=== PATIENT | male | born 1940 | race Caucasian/White ===

== ENCOUNTER 2022-03-31 19:06 | Outpatient (CLI) | payer MEDICARE, BC, SELFPAY | END 2022-03-31 19:07 | disposition home or self-care (01) | LOC: AMB 04-08 12:35 | PROVIDERS: PCP Family Medicine; Visit Provider Family Medicine | DX: R42 Dizziness and giddiness (principal); R11.2 Nausea with vomiting, unspecified | CPT/HCPCS: A0425; A0427 ==

== ENCOUNTER 2022-03-31 19:39 | Emergency (ER) | payer MEDICARE, BC, SELFPAY ==
[2022-03-31 19:43] VITALS: BP 162/88; PULSE 58; RESP 20; TEMP 36.8; O2SAT 98
--- NOTE | 2022-03-31 19:55 | CRLHL7_ITS ---
For Patients: As a result of the Century Cures Act, medical imaging exams and procedure reports are released immediately into your electronic medical record. You may view this report before your referring provider. If you have questions, please contact your health care provider. INDICATION: Nausea and vomiting. COMPARISON: CT dated March 05, 2019, cooker chip radiograph. TECHNIQUE: Two views, upright and supine of the abdomen. FINDINGS: No evidence of free air on the upright film. Several loops of gas-filled, mildly dilated bowel, with similar constellation when compared to prior cooker chip radiograph. No evidence of obstruction. Similar appearance of spinal and left femur hardware. Osteopenia. Degenerative changes of the spine. Elevation of the right hemidiaphragm. IMPRESSION: Nonobstructive bowel gas pattern. No evidence of free air. Dictated by Thomas Garcia MD @ 03/31/2022 8:52:56 PM (Electronically Signed)
[2022-03-31 20:24] LABS: Basophils Absolute Auto 0.09 K/uL (0.00-0.30); Basophils Percent Auto 1.3 % (0.0-3.0); Eosinophils Absolute Auto 0.27 K/uL (0.00-0.50); Eosinophils Percent Auto 3.8 % (0.0-7.0); Hematocrit 37.8 % (37.0-53.0); Hemoglobin* 12.3 gm/dL (13.5-17.5); Immature Granulocytes Abs Auto 0.01 K/uL (0.00-0.30); Lymphocytes Percent Auto 19.4 % (20-44); Mean Corpuscular HGB Conc 33 gm/dL (32-36); Mean Corpuscular Hemoglobin 31 pg (26-34); Mean Corpuscular Volume 96 fL (80-100); Monocytes Percent Auto 6.1 % (0.0-11.0); Neutrophils Absolute Auto 4.91 K/uL (1.7-7.0); Neutrophils Percent Auto 69.3 % (42.0-72.0); Platelet Count* 211 K/uL (140-440); RDW Coefficient of Variation % 13.7 % (11.5-15.5); Red Blood Count 3.95 m/uL (4.30-5.90); White Blood Count* 7.08 K/uL (4.50-11.00)
[2022-03-31 20:30] LABS: Lactate* 1.3 mmol/L (0.5-1.9)
[2022-03-31 20:42] LABS: SARS Antigen* negative (Negative)
[2022-03-31 20:46] LABS: Slide Review Reflex No
[2022-03-31 20:52] LABS: Albumin* 3.9 g/dL (3.3-5.0); Chloride* 108 mmol/L (96-114); Sodium* 139 mmol/L (135-149)
[2022-03-31 20:53] LABS: Potassium* 3.7 mmol/L (3.6-5.1)
[2022-03-31 20:55] LABS: Alanine Aminotransferase* 15 U/L (4-50); Alkaline Phosphatase* 52 U/L (40-150); Aspartate Amino Transferase* 26 U/L (12-35); Bilirubin Total* 0.4 mg/dL (0.1-1.5); Blood Urea Nitrogen* 18 mg/dL (7-30); Calcium* 9.6 mg/dL (8.4-10.6); Carbon Dioxide* 28 mmol/L (20-32); Creatinine* 0.9 mg/dL (0.5-1.5); Estimated Glomerular Filt Rate 87 ml/min; Glucose* 160 mg/dL (60-115); Lipase* 60 U/L (23-300); Total Protein* 6.7 g/dL (6.0-8.3)
[2022-03-31] MEDS: METOCLOPRAMIDE HCL 5 MG/ML INJ 10 MG IVP (20:58)
[2022-03-31 21:08] LABS: Troponin I* < 0.01 ng/mL (0.01-0.04)
[2022-03-31 21:34] LABS: Appearance Urine Clear (Clear); Bilirubin Urine Negative (Negative); Blood Urine 2+ (Negative); Color Urine Yellow (Yellow); Glucose Urine Negative (Negative); Ketones Urine 1+ (Negative); Leukocyte Esterase Urine Trace (Negative); Nitrite Urine Negative (Negative); Protein Urine 2+ (Negative); Specific Gravity Urine 1.025 (1.000-1.030)
[2022-03-31 21:55] LABS: Calcium Oxalate Crystals Urine Few
--- NOTE | 2022-03-31 22:17 | CRLHL7_ITS ---
For Patients: As a result of the Century Cures Act, medical imaging exams and procedure reports are released immediately into your electronic medical record. You may view this report before your referring provider. If you have questions, please contact your health care provider. INDICATION: Hematuria. TECHNIQUE: CT abdomen and pelvis without contrast. COMPARISON: February 03, 2019. FINDINGS: Lower chest: Mild right basilar atelectasis. Elevation of the right hemidiaphragm. Liver: Normal in size and attenuation. No suspicious masses. Gallbladder and bile ducts: Post cholecystectomy. Mild intra and extrahepatic biliary ductal dilatation likely reservoir effect. Pancreas: Mild diffuse pancreatic atrophy. Spleen: Numerous splenic calcified granulomas. Adrenal glands: Normal in size. No nodules. Kidneys: Right-sided hydronephrosis. Nonobstructing stones identified in the collecting system and in the right renal pelvis measuring up to 8 millimeters in diameter. In addition, there is mild hydro ureter on the right with a 4 millimeter stone identified at the right UVJ, probably in the bladder. Bilateral renal cysts are identified, similar to prior exam from 2019. GI tract: Unremarkable. Normal in caliber. No sign of mass or inflammation. Normal appendix. Vasculature: Abdominal aorta is normal in caliber. Lymph nodes: No lymphadenopathy. Peritoneum/Abdominal Wall: Unremarkable. No sign of mass or infiltration. No free air or significant free fluid. Pelvis: Unremarkable. No pelvic masses. Bones: Multilevel degenerative changes in the spine with multilevel fusion. Orthopedic hardware in the lower lumbar spine. Scoliosis. Intramedullary nusrat and fixation screws in the left proximal femur. IMPRESSION: 4 millimeter stone identified near the right UVJ likely just passed into the bladder. Mild right hydroureteronephrosis. Additional nonobstructing stones identified in the right renal pelvis and right renal collecting system measuring up to 8 millimeters. Please note that all CT scans at this facility use dose modulation, iterative reconstruction, and/or weight-based dosing when appropriate to reduce radiation dose to as low as reasonably achievable. Dictated by Bridger García MD @ 03/31/2022 11:13:00 PM (Electronically Signed)
--- NOTE | 2022-03-31 23:41 | ED.GENADULT ---
HPI - General Adult General Chief complaint: Nausea/Vomiting Stated complaint: Weakness Time Seen by Provider: 03/31/22 19:53 History of Present Illness HPI narrative: 81yo male with h/o diabetes, urinary frequency, gout, and nephrolithiasis that presents with vomiting x2 days. The patient denies abdominal pain. The patient reports for the day prior to presentation he had normal daytime activities without symptoms noted; then at dinner, he is able to eat some of his dinner prior to becoming weak and diaphoretic, after which he promptly vomits and has brief improvement of symptoms. The patient reports the symptoms recurred today, prior to presentation. The patient denies history of bloating and gas, constipation, or dysuria. The patient has remote h/o COVID. The patient reports taking medication for chronic conditions, as noted. The patient is able to tolerate PO intake. The patient reports eating has no affect on symptoms. The patient states that he has had no known sick contacts, no recent changes in diet, no travel. The patient denies fever, chills, or sweats. See nursing notes for details. Related Data Home Medications Medication Instructions Recorded Confirmed allopurinol 100 mg tablet mg 03/31/22 finasteride 5 mg tablet mg 03/31/22 furosemide 20 mg tablet mg 03/31/22 gabapentin 100 mg capsule mg 03/31/22 metformin 500 mg tablet mg 03/31/22 pyridostigmine bromide 60 mg tablet mg 03/31/22 Previous Rx's Medication Instructions Recorded metoclopramide HCl 5 mg tablet 5 mg PO TID PRN nausea and 03/31/22 (Reglan) vomiting #7 tabs Allergies Allergy/AdvReac Type Severity Reaction Status Date / Time No Known Drug Allergies Allergy Verified 03/31/22 19:54 Review of Systems Const: Reports: fatigue and malaise; Denies: fever or chills ENMT: Denies: throat pain or difficulty swallowing Cardio: Denies: chest pain or shortness of breath with exertion Resp: Denies: shortness of breath or cough GI: Reports: abdominal pain; Denies: nausea, vomiting, heartburn, diarrhea, constipation, bloating, belching, excessive passing of gas, difficulty swallowing, feeling full early, change in bowel habits or blood in stool : Denies: painful urination, urinary frequency, urinary urgency or blood in urine Musculo: Denies: back pain Neuro: Denies: headache Endo: Reports: fatigue; Denies: excessive urination [facility] Medical History (Updated 03/31/22 @ 23:43 by Lori Stephenson DO) BPH (benign prostatic hyperplasia) Diabetes 1.5, managed as type 2 Gout HTN (hypertension) Kidney calculus Kidney calculus Myasthenia gravis Surgical History (Updated 03/31/22 @ 20:05 by Tennille Thibodeaux RN) History of cholecystectomy History of transurethral resection of prostate S/P cervical spinal fusion Total knee replacement status Social History Smoking Status: Never smoker Do you use any of these nicotine containing products: None How often do you have a drink containing alcohol: never AUDIT-C Alcohol total score: 0 Non-prescribed substance use: denies use Exam Const: Vital Signs, click to edit/add: Vital Signs - 24 hr 03/31/22 19:43 Temperature 98.2 F Pulse Rate [Apical ] 58 L Pulse Rate [Pulse Oximeter] 58 L Respiratory Rate 20 Blood Pressure [Le ft Upper Arm] 162/88 H Pulse Oximetry 98 Oxygen Delivery Me thod Room Air Documenting provider has reviewed patient's vital signs: yes Common normals: no apparent distress, oriented x3, no limitations, healthy appearing, alert and well nourished General appearance: cooperative, comfortable and well developed; not in distress Orientation/consciousness: Yes awake, Yes oriented to person, Yes oriented to place and Yes oriented to time HENMT: Common normals: normocephalic and head/scalp atraumatic Head and scalp: normocephalic and atraumatic Face and sinus: normal facial exam (limited by masking) Eye: Common normals: EOMs intact bilaterally General eye: normal appearance of both eyes Resp: Common normals: normal respiratory effort, no retractions, no use of accessory muscles and clear to auscultation bilaterally Effort & inspection: able to speak in complete sentences Auscultation: clear to auscultation bilaterally Cardio: Common normals: regular rate, regular rhythm, S1 normal heart sound, S2 normal heart sound, no gallops, no clicks and no murmurs Rate: regular rate Rhythm: regular rhythm Heart sounds: S1 normal and S2 normal GI: Common normals: Normal to inspection, nondistended, normoactive bowel sounds present, soft to palpation and non-tender (but reported discomfort with palpation) Palpation: soft and tender : Common normals: no CVA tenderness Bladder/kidney exam: no CVA tenderness Back & Pelvis: Common normals: no CVA tenderness Extremity: Common normals: normal to inspection, full ROM and no clubbing, cyanosis or edema Neuro: Common normals: oriented x3, CN's II-XII intact bilaterally, moves all extremities, no focal motor deficits and no sensory deficits noted Sensorium/orientation: awake, alert, oriented to person, oriented to place and oriented to time Gait (neuro): normal gait Sensory exam: double simultaneous stimulation for sensation normal Motor exam: no movement abnormalities noted Psych: Common normals: mental status grossly normal, thought process normal and speech normal Appearance: grossly normal Attitude: calm Speech: normal speech Thought process: normal thought process Thought content: normal thought content Attention/concentration: attention grossly intact Memory/cognition: memory grossly intact Insight: insight good Judgement: judgment good Skin: Common normals: no rashes or lesions noted General skin exam: no rashes or lesions noted Course Course Hospital Course: 81yo male patient presented to the ED for complaints of vomiting and weakness for two days. Labs and imaging were ordered, and resulted as noted. The patient was given medication to assist with nausea with improvement in symptoms. Reevaluation(s) Reevaluation #1: Patient reports some improvement in symptoms. Patient's vital signs have remained stable. The results were discussed, and the patient, his , and daughter verbalized understanding. The patient's daughter is concerned about recurrent stones and if this could be contributing to his discomfort. Additional imaging will be performed. Time: 22:20 Reevaluation #2: Patient reports continued improvement in symptoms. Patient's vital signs have remained stable. The additional results were discussed, and the patient verbalized understanding. Reasons for follow-up or return were discussed. Time: 23:00 Vital Signs Vital signs: Initial Vital Signs Temperature 98.2 F 03/31/22 19:43 Temperature Source Temporal Artery Scan 03/31/22 19:43 Pulse Rate 58 L 03/31/22 19:43 Respiratory Rate 20 03/31/22 19:43 Blood Pressure 162/88 H 03/31/22 19:43 Blood Pressure Mean 112 03/31/22 19:43 Pulse Oximetry 98 03/31/22 19:43 Oxygen Delivery Method 03/31/22 19:43 Vital Signs Temperature 98.2 F 03/31/22 19:43 Pulse Rate 58 L 03/31/22 19:43 Respiratory Rate 20 03/31/22 19:43 Blood Pressure 162/88 H 03/31/22 19:43 Pulse Oximetry 98 03/31/22 19:43 Oxygen Delivery Method 03/31/22 19:43 Temperature 98.2 F 03/31/22 19:43 Pulse Rate 58 L 03/31/22 19:43 Respiratory Rate 20 03/31/22 19:43 Blood Pressure 162/88 H 03/31/22 19:43 Pulse Oximetry 98 03/31/22 19:43 Oxygen Delivery Method 03/31/22 19:43 Medical Decision Making MDM Narrative Medical decision making narrative: During the evaluation of this patient consider multiple differential diagnosis considerations. The life-threatening differential diagnoses considered include: Appendicitis, aortic aneurysm, mesenteric ischemia, bowel perforation, volvulus, and bowel obstruction. Other differential diagnoses include but are not limited to: Inflammatory bowel disease, cholecystitis, pancreatitis, hepatitis, gastritis, GERD, diverticulitis, peptic ulcer disease, pyelonephritis/UTI, renal colic/stone, diseases of the genitourinary system and reproductive system, as well as the other etiologies. Lab Data Labs: Lab Results 03/31/22 03/31/22 03/31/22 Range/Units 20:03 20:09 20:09 WBC 7.08 (4.50-11.00) K/uL RBC 3.95 L (4.30-5.90) m/uL Hgb 12.3 L (13.5-17.5) gm/dL Hct 37.8 (37.0-53.0) % MCV 96 (80-100) fL MCH 31 (26-34) pg MCHC 33 (32-36) gm/dL RDW Coeff of Indu 13.7 (11.5-15.5) % Plt Count 211 (140-440) K/uL Neut % (Auto) 69.3 (42.0-72.0) % Lymph % (Auto) 19.4 L (20-44) % Brule % (Auto) 6.1 (0.0-11.0) % Eos % (Auto) 3.8 (0.0-7.0) % Baso % (Auto) 1.3 (0.0-3.0) % Neut # (Auto) 4.91 (1.7-7.0) K/uL Lymph # (Auto) 1.40 (0.90-2.90) K/uL Brule # (Auto) 0.40 (0.00-0.90) K/UL Eos # (Auto) 0.27 (0.00-0.50) K/uL Baso # (Auto) 0.09 (0.00-0.30) K/uL Abs Immat Gran (auto) 0.01 (0.00-0.30) K/uL Sodium 139 (135-149) mmol/L Potassium 3.7 (3.6-5.1) mmol/L Chloride 108 (96-114) mmol/L Carbon Dioxide 28 (20-32) mmol/L BUN 18 (7-30) mg/dL Creatinine 0.9 (0.5-1.5) mg/dL Estimated GFR 87 ml/min Glucose 160 H (60-115) mg/dL Lactate (0.5-1.9) mmol/L Calcium 9.6 (8.4-10.6) mg/dL Total Bilirubin 0.4 (0.1-1.5) mg/dL AST 26 (12-35) U/L ALT 15 (4-50) U/L Alkaline Phosphatase 52 (40-150) U/L Troponin I < 0.01 L (0.01-0.04) ng/mL Total Protein 6.7 (6.0-8.3) g/dL Albumin 3.9 (3.3-5.0) g/dL Lipase 60 (23-300) U/L Urine Color (Yellow) Urine Appearance (Clear) Urine pH (5.0-8.5) Ur Specific [place] (1.000-1.030) Urine Protein (Negative) Urine Glucose (UA) (Negative) Urine Ketones (Negative) Urine Blood (Negative) Urine Nitrite (Negative) Urine Bilirubin (Negative) Urine Urobilinogen (0.2-1.0) Ur Leukocyte Esterase (Negative) Urine RBC (0-2) Urine WBC (0-5) Ur Squamous Epith Cells (None-Few) Calcium Oxalate Crystal (None) Urine Bacteria (None) SARS-CoV-2 Ag (Rapid) negative (Negative) 03/31/22 03/31/22 Range/Units 20:09 21:23 WBC (4.50-11.00) K/uL RBC (4.30-5.90) m/uL Hgb (13.5-17.5) gm/dL Hct (37.0-53.0) % MCV (80-100) fL MCH (26-34) pg MCHC (32-36) gm/dL RDW Coeff of Indu (11.5-15.5) % Plt Count (140-440) K/uL Neut % (Auto) (42.0-72.0) % Lymph % (Auto) (20-44) % Brule % (Auto) (0.0-11.0) % Eos % (Auto) (0.0-7.0) % Baso % (Auto) (0.0-3.0) % Neut # (Auto) (1.7-7.0) K/uL Lymph # (Auto) (0.90-2.90) K/uL Brule # (Auto) (0.00-0.90) K/UL Eos # (Auto) (0.00-0.50) K/uL Baso # (Auto) (0.00-0.30) K/uL Abs Immat Gran (auto) (0.00-0.30) K/uL Sodium (135-149) mmol/L Potassium (3.6-5.1) mmol/L Chloride (96-114) mmol/L Carbon Dioxide (20-32) mmol/L BUN (7-30) mg/dL Creatinine (0.5-1.5) mg/dL Estimated GFR ml/min Glucose (60-115) mg/dL Lactate 1.3 (0.5-1.9) mmol/L Calcium (8.4-10.6) mg/dL Total Bilirubin (0.1-1.5) mg/dL AST (12-35) U/L ALT (4-50) U/L Alkaline Phosphatase (40-150) U/L Troponin I (0.01-0.04) ng/mL Total Protein (6.0-8.3) g/dL Albumin (3.3-5.0) g/dL Lipase (23-300) U/L Urine Color Yellow (Yellow) Urine Appearance Clear (Clear) Urine pH 7.0 (5.0-8.5) Ur Specific [place] 1.025 (1.000-1.030) Urine Protein 2+ A (Negative) Urine Glucose (UA) Negative (Negative) Urine Ketones 1+ A (Negative) Urine Blood 2+ A (Negative) Urine Nitrite Negative (Negative) Urine Bilirubin Negative (Negative) Urine Urobilinogen 1.0 (0.2-1.0) Ur Leukocyte Esterase Trace A (Negative) Urine RBC 10-25 A (0-2) Urine WBC 10-25 A (0-5) Ur Squamous Epith Cells None (None-Few) Calcium Oxalate Crystal Few A (None) Urine Bacteria None (None) SARS-CoV-2 Ag (Rapid) (Negative) Discharge Plan Discharge Clinical Impression: Bilateral nephrolithiasis Patient Disposition: Home, Self-Care Condition: Improved Instructions: Kidney Stones (ED), How to Strain Your Urine (ED) Additional Instructions: Thank you for choosing [facility] for your care today. Consider treatment with Flomax, NSAIDs, and pain medication. Use medication as directed. Urology referral should be discussed with your primary physician. Encouraged to drink plenty of water. Patient advised to eliminate soda and tea from diet. Discussed consideration of straining urine for stone analysis, if stone passes. Follow up recommended for new or worsening symptoms. I recommend calling primary care for follow-up in the next 3-5 days for persistent symptoms. If new or worsening symptoms develop or you have any concerns in the meantime, please call your primary care clinic or return to the ER for re-evaluation. Activity Level: No Restrictions and Activity as Tolerated Discharge Diet: Regular Prescriptions: New metoclopramide HCl [Reglan] 5 mg tablet 5 mg PO TID PRN (Reason: nausea and vomiting) Qty: 7 0RF No Action metformin 500 mg tablet allopurinol 100 mg tablet furosemide 20 mg tablet gabapentin 100 mg capsule finasteride 5 mg tablet pyridostigmine bromide 60 mg tablet Follow Up/Referrals: Darrion Ivan MD [Primary Care Provider] - 04/03/22 (Recheck of symptoms. Consider outpatient urology follow-up for h/o stones.) Stand Alone Forms: [employer] Info Instructions
== END 2022-04-01 01:20 | disposition home or self-care (01) ==
PROVIDERS: Emergency Provider Family Medicine; PCP Family Medicine
DX: N20.0 Calculus of kidney (principal); E11.9 Type 2 diabetes mellitus without complications
CPT/HCPCS: 36415; 74019; 74176; 80053; 81003; 81015; 83605; 83690; 84484; 85025; 87086; 87426; 96374; 99284; J2765

== ENCOUNTER 2022-06-08 12:30 | Outpatient (CLI) | payer MEDICARE, BC, SELFPAY ==
--- NOTE | 2022-06-08 12:45 | CRLHL7_ITS ---
For Patients: As a result of the Cures Act, medical imaging exams and procedure reports are released immediately into your electronic medical record. You may view this report before your referring provider. If you have questions, please contact your health care provider. Indication: ASSESS NEW STONES Technique: Abdomen 1 view. Comparison: 03/31/2022 Findings: Rightward curvature lumbar spine. Postop changes L4 through S1. Postop changes right upper quadrant. Numerous splenic calcified granulomas. No left pleural effusion. Old left proximal femoral fracture with intact visualized hardware and adjacent heterotopic density. No bowel obstruction. No evidence of renal stone. Impression: No evidence of renal stone on today`s exam. Dictated by Clint Veloz MD @ 06/08/2022 1:46:29 PM (Electronically Signed)
--- NOTE | 2022-06-08 13:00 | CRLHL7_ITS ---
For Patients: As a result of the Cures Act, medical imaging exams and procedure reports are released immediately into your electronic medical record. You may view this report before your referring provider. If you have questions, please contact your health care provider. CLINICAL HISTORY: hx of nephrolithiasis COMPARISON: none TECHNIQUE: Griffiths scale and color Doppler images were acquired of the kidneys and urinary bladder. FINDINGS: There is an anechoic structure arising from the upper pole of the right kidney measuring 3.5 x 3.0 x 3.4 cm. An adjacent calcification is present measuring 11 x 8 x 9 millimeters. There is an additional cyst in the midportion of the right kidney measuring 2.2 x 1.0 x 1.9 cm. A cluster of stones is located within the upper pole of the right kidney measuring approximately 5-6 millimeters. There is also a stone within the lower pole of the right kidney measuring 8 x 6 millimeters. Cluster of stones in the inferior pole of the left kidney noted. There is a complex cyst within the midportion of the left kidney with internal reticular echoes measuring 4.3 x 3.6 x 4.4 cm. The right kidney measures 9.7cm in length and the left kidney measures 10.3cm in length. The renal cortex appears of normal thickness. Normal color Doppler images of both kidneys. The urinary bladder appears normal. Bladder volume 13 cc. There is no evidence of bladder calculi or diverticula. IMPRESSION: Multiple bilateral renal stones. Complex left renal cyst in the midportion measuring 4.4 x 3.6 x 4.3 cm. Simple cyst with associated calcification upper pole right kidney measuring 3.5 x 3.0 x 3.4 cm. Correlation with prior studies recommended. If none are available then CT urogram suggested. Dictated by Clint Veloz MD @ 06/08/2022 3:11:18 PM (Electronically Signed)
== END 2022-06-08 12:31 | disposition home or self-care (01) ==
PROVIDERS: PCP Family Medicine
DX: N20.0 Calculus of kidney (principal); N28.1 Cyst of kidney, acquired
CPT/HCPCS: 74018; 76770

== ENCOUNTER 2022-10-14 15:40 | Outpatient (CLI) | payer MEDICARE, BC, SELFPAY | END 2022-10-14 15:41 | disposition home or self-care (01) | LOC: LONREF 15:42 | PROVIDERS: PCP Family Medicine; Visit Provider Family Medicine | DX: I10 Essential (primary) hypertension (principal); E13.9 Other specified diabetes mellitus without complications | CPT/HCPCS: 80048 ==

== ENCOUNTER 2023-03-01 09:37 | Outpatient (CLI) | payer MEDICARE, BC, SELFPAY | END 2023-03-01 09:38 | disposition home or self-care (01) | LOC: WOUND 09:37 | PROVIDERS: PCP Family Medicine; Visit Provider Nurse Practitioner Family | DX: E11.622 Type 2 diabetes mellitus with other skin ulcer (principal); L89.313 Pressure ulcer of right buttock, stage 3; M62.81 Muscle weakness (generalized); Z79.84 Long term (current) use of oral hypoglycemic drugs | CPT/HCPCS: 11042; 99213 ==

== ENCOUNTER 2023-03-08 11:26 | Outpatient (CLI) | payer MEDICARE, BC, SELFPAY | END 2023-03-08 11:27 | disposition home or self-care (01) | LOC: WOUND 11:27 | PROVIDERS: PCP Family Medicine; Visit Provider Nurse Practitioner Family | DX: E11.622 Type 2 diabetes mellitus with other skin ulcer (principal); L89.313 Pressure ulcer of right buttock, stage 3; Z79.84 Long term (current) use of oral hypoglycemic drugs; M62.81 Muscle weakness (generalized) | CPT/HCPCS: 99212 ==

== ENCOUNTER 2023-03-22 14:30 | Outpatient (CLI) | payer MEDICARE, BC, SELFPAY | END 2023-03-22 14:31 | disposition home or self-care (01) | LOC: WOUND 14:30 | PROVIDERS: PCP Family Medicine; Visit Provider Nurse Practitioner Family | DX: E11.622 Type 2 diabetes mellitus with other skin ulcer (principal); L89.313 Pressure ulcer of right buttock, stage 3; Z79.84 Long term (current) use of oral hypoglycemic drugs | CPT/HCPCS: 99212 ==

== ENCOUNTER 2023-07-19 15:54 | Outpatient (CLI) | payer MEDICARE, BC, SELFPAY ==
--- OUTSIDE RECORDS SUMMARY | 2023-07-19 16:01 | XMS_ITS | Continuity of Care Document ---
Author Name Unknown Organization [facility] Address [address] [place] [address] Phone Care Team Providers Care Financial Aids Officer Name Role Phone García KVNGChanell Unavailable Unavailable Allergies, Adverse Reactions, Alerts Substance Reaction Status Criticality No Known Allergies Active No Inform ation Medications Medication Instructions Dosage Effective Dates (start - stop) Status Comments ASPIRIN (unknown strength) Not Available - Active MULTIVITAMINS (unknown strength) Not Available - Active VITAMIN D2 (unknown strength) Not Available - Active GABAPENTIN (unknown strength) take 1 by Oral route TID Not Available - Active ALLOPURINOL (unknown strength) Not Available - Active FINASTERIDE (unknown strength) Not Available - Active Procedures Procedure Date Office/Outpatient Visit,Est, Mod 2022 Office/Outpatient Visit,[facility], [facility] [place]Ray Exam Of Neck Spine, 4+ Views X-Ray Exam Lower Spine 2-3 Views 2022 Office/Outpatient Visit,Est, Mod 2018 X-Ray Exam Lower Spine 2-3 Views 2018 Office/Outpatient Visit,Est, Mod 2017 X-Ray Exam Lower Spine 2-3 Views 2017 Office/Outpatient Visit,Est, Mod 2016 X-Ray Exam Lower Spine 2-3 Views 2016 Postop Followup Visit X-Ray Exam Lower Spine 2-3 Views 2016 Postop Followup Visit X-Ray Exam Lower Spine 2-3 Views 2016 Arthdsis Post/Posterolatrl/Postinterbody Lumbar Spine Fusion, Each Add'Lvertebra 2016 Remove Lumbar Spine Lamina, 1 Seg Insert Spine Seg Fix, Post, 3-6 Seg Insert interbody cage w/fusion 17 Pa Arthdsis Post/Posterolatrl/Postinterb bebo Lumbar Pa Assist Spine Fusion, Each Add'Lverteb ra Remove Lumbar Spine Lamina, 1 Seg Pa Assist Insert Spine Seg Fix, Post, 3- 6 Seg PA Assist Insert interbody cage w/fusion Office/Outpatient Visit,New, Mod 2016 X-Ray Exam Lwr Spine, Min 4 Views Advance Directives Directive Yes / No Effective Date File Name No Information Encounters Encounter Description Practice Location Reason(s) For Visit Diagnoses Date Provider Providers Copied on Encounter [facility], [address], [place], [place], [id number], [place] tel:[phone] [facility] No Information Sep- 3 [facility]. [facility], [address] [place] [address] [address], [place], [address], [place]. tel:[phone] Referring Provider: Vazquez Ferris, [facility] [address] [place], [address]. tel:[phone] Office/Outpat ient Visit,Est, Mod [facility], [address], [place], [place], [id number], [place] tel:[phone] [facility] Arthrodesis statusSpinal stenosis, thoracic regionMyelopathy Sep-0 3 [facility]. [facility], [address], [place], [address], [place]. tel:[phone] Referring Provider: Vazquez Ferris, [facility] [address], [place], [address]. tel:[phone] Office/Outpat ient Visit,New, Mod [facility], [address], [place], [place], [id number], [place] tel:[phone] [facility] Other spondylosis, cervical regionOther spondylosis, lumbar region [address] [facility], [address], [place], [address], [place]. [phone] Referring Provider: Vazquez Ferris, [facility] [address], [place], [address]. tel:[phone] Office/Outpat ient Visit,Est, Mod [facility], [address], [place], [id number], [place] tel:[phone] [facility] - [facility] Spinal stenosis, lumbar region NOS 9 Conner Kellogg. [facility], [address] [place] [address] [address], [facility] [place], [id number] , [place]. [phone] Referring Provider: Vazquez Ferris, [facility] [address], [place], [address]. tel:[phone] Office/Outpat ient Visit,Est, Mod [facility], [address], [place], [id number], [place] tel:[phone] [facility] Spinal stenosis, lumbar region NOS 8 Conner Kellogg. [facility], [address], [facility] [place], [id number] , [place]. [phone] Referring Provider: Vazquez Ferris, [facility] [address], [place], [address]. tel:[phone] Office/Outpat ient Visit,Est, Mod [facility], [address], [place], [address], [place] tel:[phone] [facility] Spinal stenosis, lumbar region NOS [address] [facility], [address], [place], [address] , [place]. tel:[phone] Referring Provider: Vazquez Ferris, [facility] [address], [place], [address]. tel:[phone] [facility], [address], [place], [id number], [place] tel:[phone] [facility] Spinal stenosis, lumbar region Conner Kellogg. [facility], [address] [place] [address] [address], [place], [id number] , [place]. [phone] Referring Provider: Vazquez Ferris, [facility] [address], [place], [address]. tel:[phone] [facility], [address], [place], [address], [place] tel:[phone] [facility] Encounter for other specified surgical aftercare Aric Pitt. [facility], [facility] [address] [place] [address] [address], [place], [place], [id number] , [place]. [phone] Referring Provider: Vazquez Ferris, [facility] [address], [place], [address]. tel:[phone] [facility], [address], [place], [id number], [place] tel:[phone] [facility] No Information Conner Kellogg. [facility], [address] [place] [address] [address], [place], [address] , [place]. tel:[phone] Referring Provider: Vazquez Ferris, [facility] [address], [place], [address]. tel:[phone] Office/Outpat ient Visit,New, Mod [facility], [address], [place], [id number], [place] tel:[phone] [facility] - [facility] Spinal stenosis, lumbar region [address] [facility], [address], [place], [place], [address] , [place]. tel:[phone] Referring Provider: Vazquez Ferris, [facility] [address] , [place], [address]. tel:[phone] Family History Family Member Type Diagnosis Age At Onset No Information Payers Payer name Insurance type Covered constitution party ID Authoriza tion(s) No Information Social History Type Description Quantity Date Captured Comments Sex Male Smoking Status No Information Chief Complaint And Reason For Visit No Information Reason For Referral Reason For Referral No Information Plan Of Treatment Date Type Action Status Future Order: Radiology Order AP Lateral Lumbar (APLatLumb), Ordered on: Ordered Future Order: Radiology Order F/ E Lumbar (F/ELumb), Ordered on: Ordered History Of Present Illness Encounter Date Complaint History Of Prese nt Illness No Information Functional Status Date Functional Assessmen t No Information Instructions Date Instruction Additional Infor mation Weight Management Education Rela mauri to Overweight Weight management: I nstructed to return to General Practitioner timeframe: 1 Month. Related to Overweight Weight Management Education Rela mauri to Overweight Weight management: I nstructed to return to General Practitioner timeframe: 1 Month. Related to Overweight Assessments Type Assessment Date No Information Patient Care Teams Name Effective Dates (start - stop) Status Members No Information
--- OUTSIDE RECORDS SUMMARY | 2023-07-19 16:01 | XMS_ITS | Continuity of Care Document ---
Author Name Unknown Organization [facility] Address [address] [place] [address] Phone Care Team Providers Care Roller Coaster Engineer Name Role Phone Bob Montanez MD Unavailable Unavailable Allergies, Adverse Reactions, Alerts Substance Reaction Status Criticality No Known Allergies Active No Inform ation Medications Medication Instructions Dosage Effective Dates (start - stop) Status Comments allopurinol 100 mg tablet take 1 tablet by oral route every day 100 MG - Active Vazalore 81 mg capsule take 1 capsule by oral route every day 81 MG - Active amlodipine 2.5 mg tablet take 1 tablet by oral route every day 2.5 MG - Active ergocalciferol (vitamin D2) 10 mcg (400 unit) tablet - Active finasteride 5 mg tablet take 1 tablet by oral route every day 5 MG - Active furosemide 20 mg tablet take 1 Tablet by oral route every day 20 MG - Active gabapentin 100 mg capsule take 1 Capsule by oral route 3 times every day 100 MG - Active metoclopramide 5 mg tablet take 1 tablet by oral route 3 times every day 30 minutes before meals and at bedtime 5 MG - Active multivitamin tablet take 1 Tablet by oral route every day with food 1 Tablet - Active pioglitazone 15 mg tablet take 1 tablet by oral route every day 15 MG - Active pyridostigmine bromide 60 mg tablet take 1 - 2 tablet by oral route 4 times every day 60 MG - Active tamsulosin 0.4 mg capsule take 1 capsule by oral route every day 1/2 hour following the same meal each day 0.4 MG - Active Procedures Procedure Date New Pt Eval Moderate Advance Directives Directive Yes / No Effective Date File Name Other Directive No N/A N/A WARNING:The information contained in this section is historical and is provided for information only and does not constitute a legal document or any assurance that the information is still accurate. Please verify the information with the fall of the legal document before using it for clinical purposes. Encounters Encounter Description Practice Location Reason(s) For Visit Diagnoses Date Provider Providers Copied on Encounter New Pt Eval Moderate [facility], [address], [place], [place], [address], [place] tel:[phone] Ann Marie [facility] Neck Pain (chief complaint) Radiculopathy, cervical regionPostlaminecto my syndromeMyasthenia gravisRadiculopathy , lumbar regionType 2 diabetes mellitus with diabetic mononeuropathy 3 Tarik Rojas. [address], [place], [place], [address], [place]. tel:[phone] Referring Provider: Clint Nascimento, [address], [place], [address] . tel:[phone] CU[facility] Boggs, [address], [place], [place], [address], [place] tel:[phone] THIAGO Boggs No Information 3 MAYO HUBER. [address], [address], [place], [place], [address], [place]. tel:[phone] Family History Family Member Type Diagnosis Age At Onset No Information Payers Payer name Insurance type Covered libertarian ID Lucina carias(s) Blue Cross Medicare 16 [id number] Social History Type Description Quantity Date Captured Comments Alcohol Use Details No Caffeine Use Details coffee and soda 1 cup per day 2022 Tobacco Use Status No Information Smoking Status Former smoker Non-Smoking Tobacco Use Details : No Details Available : No Details Available Sex Male Vital Signs Date / Time: Height Weight BMI Pulse Rate Blood Pressure Temperature Respiratory Rate Body Surface Area Head Circumference Head Circ. Percentile Wt./Khoi. Percentile BMI percentile Pulse Ox Inhaled Ox 1:51 PM 66.00 in 67.132 kg (148.00 lbs) 23.8 9 kg/m eter (2) 69 /min 112/67 mm[Hg] 95 % Chief Complaint And Reason For Visit From encounter dated '07/05/2023 13:30'. Neck Pain (chief complaint). Description: Onset: 2 years ago. Location of pain is bilateral anterior neck, bilateral lateral neck, bilateral posterior neck and bilateral shoulder. There is radiation of pain to the bilateral arms. The patient describes the pain as Sharp and electric. Aggravating factors include walking with head up and reaching above head. Relieving factors include OTC medications, sitting and looking down. Additional information: Patient reports his pain began after his diagnosis of myasthenia gravis. Reason For Referral Reason For Referral No Information Plan Of Treatment Date Type Action Status Referral Ordered: Physical Therapy (related to Radiculopathy, cervical region) ordered Referral Referred To: Physical Therapy Ordered: Referrals: Physical Therapy. Evaluate and treat ordered Future Order: Radiology Order EM G - Upper Extremity (EMGU), Ordered on: Ordered Future Order: Radiology Order EM G - Lower Extremity (EMGL), Ordered on: Ordered Future Order: Radiology Order X- RAY - Lumbar Spine (AP, Neutral, Lateral Neutral, Flexion, Extension Views) (RADXR19), Ordered on: Ordered Future Order: Radiology Order X- RAY - Flexion/Extension Of Cervical Spine (RADXR04), Ordered on: Ordered History Of Present Illness Encounter Date Complaint History Of Prese nt Illness Neck Pain Onset: 2 years a go. Location of pain is bilateral anterior neck, bilateral lateral neck, bilateral posterior neck and bilateral shoulder. There is radiation of pain to the bilateral arms. The patient describes the pain as Sharp and electric. Aggravating factors include walking with head up and reaching above head. Relieving factors include OTC medications, sitting and looking down. Additional information: Patient reports his pain began after his diagnosis of myasthenia gravis. Functional Status Date Functional Assessmen t Pain Score 7/10 Instructions Date Instruction Additional Infor thomas - Schedule upper and lower extremity EMG at [facility] Related to Type 2 diabetes mellitus with diabetic mononeuropathy - Requested medical records from [facility], [facility], [facility], [place], Dr. Vazquez Barkley. [facility] - Schedule physical therapy evaluation, referral sent- Order cervical epidural steroid injection, [facility] will call you to schedule - Follow up with nurse practitioner or PA in 1-2 months Related to Radiculopathy, cervical region - Follow up for EMG as scheduled Related to Myasthenia gravis Assessments Type Assessment Date assessment Radiculopathy, cervical region N assessment Postlaminectomy syndrome 2022 impression Patient underwent a L4-S1 fusion with Dr. Prieto. He underwent a C7-T1 fusion as well assessment Myasthenia gravis impression Patient reports his cervical symptoms began after his MG diagnosis. He will be receiving an EMG at [facility] in July impression Ross is a 82 yea r old male presenting for neck pain radiating into his bilateral arms which has been ongoing for the past 2-3 years. Recommended he undergo PT to strengthen his neck, ordered today. Recommended patient receive a cervical epidural steroid injection to calm down the inflammation in his neck. Patient reports he would like to proceed with PT and will consider LESI if pain persists. Will orderer today assessment Radiculopathy, lumbar region Jun assessment Type 2 diabetes mellitus with di abetic mononeuropathy impression Patient reports weak ness and tingling in his bilateral arms and legs. Ordered EMG of upper and lower extremities to assess possible neuropathy Mental Status Date Cognitive Assessment Orientation - [place] ed to time, place, person, situation. Patient Care Teams Name Effective Dates (start - stop) Status Members No Information
== END 2023-07-19 15:55 | disposition home or self-care (01) ==
PROVIDERS: PCP Family Medicine; Visit Provider Internal Medicine
DX: Z00.00 Encounter for general adult medical examination without abnormal findings (principal); R63.4 Abnormal weight loss; E11.9 Type 2 diabetes mellitus without complications; I10 Essential (primary) hypertension; N40.0 Benign prostatic hyperplasia without lower urinary tract symptoms; R82.90 Unspecified abnormal findings in urine
CPT/HCPCS: 80053; 83615; 84165; 84443; 86334; 87086

== ENCOUNTER 2023-07-28 12:35 | Outpatient (CLI) | payer MEDICARE, BC, SELFPAY ==
--- NOTE | 2023-07-28 13:00 | CRLHL7_ITS ---
For Patients: As a result of the Century Cures Act, medical imaging exams and procedure reports are released immediately into your electronic medical record. You may view this report before your referring provider. If you have questions, please contact your health care provider. Indication: Abnormal weight loss Technique: CT Chest/Abd/Pelvis w/ 72cc [id number] Please note that all CT scans at this facility use dose modulation, iterative reconstruction, and/or weight-based dosing when appropriate to reduce radiation dose to as low as reasonably achievable. Comparison: 03/31/2022, 02/03/2019 Findings: In the chest, multiple small nodules within the thyroid are similar to the prior exam. The patient has lost adipose tissue since the prior study compatible with weight loss. Bilateral subareolar gynecomastia is noted. No enlarged mediastinal, hilar or axillary lymph nodes. Degenerative changes are present. There is no fracture deformity. Scarring in the lung bases noted, right greater than left. No pleural effusion or pneumothorax. No pulmonary edema or suspicious nodule. Sequela of granulomatous disease noted. In the abdomen, there is a stable simple cyst within the right hepatic lobe measuring 1.2 cm. The gallbladder is absent. Increased prominence of the intrahepatic biliary ducts compared to the prior study. Mild atrophy of the pancreas without discernible pancreatic lesion. Numerous calcified splenic granulomas. Adrenal glands are within normal limits. Nonobstructing stones are present within both kidneys. Simple cyst medial left kidney. Stable cyst with calcifications arising from the upper pole of the right kidney. Extrarenal pelvis is present on the right. Atherosclerotic changes. Scoliotic deformity. No enlarged lymph nodes. In the pelvis, stable stone adjacent to the right UVJ. No dilated bowel loops, free air or free fluid. No abscess. No pelvic or inguinal adenopathy. Postop changes left proximal femur. Postop changes lumbar spine. Impression: Increased distention of the extrahepatic and intrahepatic biliary ducts with the common bile duct measuring up to approximately 11 millimeters. MRCP recommended for further evaluation. No discernible pancreatic lesion. Chronic granulomatous disease. Nonobstructing renal calculi bilaterally. Stable bilateral renal cysts. Interval clearing of stones from the bladder with residual stone material adjacent to the right UVJ. No obstruction. Severe multilevel degenerative changes with dextroscoliosis. No acute fracture. Please note that all CT scans at this facility use dose modulation, iterative reconstruction, and/or weight-based dosing when appropriate to reduce radiation dose to as low as reasonably achievable. Dictated by Clint Veloz MD @ 07/29/2023 11:19:05 AM (Electronically Signed)
[2023-07-28 13:13] LABS: Creatinine* 0.9 mg/dL (0.5-1.5); Estimated Glomerular Filt Rate 86 ml/min
== END 2023-07-28 12:36 | disposition home or self-care (01) ==
LOC: CT 12:36
PROVIDERS: PCP Internal Medicine; Visit Provider Internal Medicine
DX: R63.4 Abnormal weight loss (principal); N20.0 Calculus of kidney
CPT/HCPCS: 36415; 71260; 74177; 82565; Q9967

== ENCOUNTER 2023-08-05 19:33 | Emergency (ER) | payer MEDICARE, BC, SELFPAY ==
[2023-08-05 19:48] VITALS: BP 151/66; PULSE 72; RESP 18; TEMP 36.7; O2SAT 97; BMI 23.7
--- NOTE | 2023-08-05 20:36 | CRLHL7_ITS ---
For Patients: As a result of the Century Cures Act, medical imaging exams and procedure reports are released immediately into your electronic medical record. You may view this report before your referring provider. If you have questions, please contact your health care provider. INDICATION: Hematuria. TECHNIQUE: CT abdomen and pelvis without contrast. COMPARISON: CT chest/abdomen/pelvis dated 07/28/2023. FINDINGS: Lower chest: Stable fibrotic changes in the right lower lobe. No focal consolidation. Evaluation of solid organs is limited secondary to lack of IV contrast administration. Liver: Scattered punctate calcified granulomas. Stable subcentimeter hypodense lesion in the right lobe of the liver. Gallbladder and bile ducts: Postcholecystectomy. Prominence of the biliary ducts may be secondary to post cholecystectomy state. Pancreas: Mild fatty atrophy. Spleen: Punctate calcified granulomas. Adrenal glands: Unremarkable. Kidneys: Multiple punctate nonobstructing bilateral renal calculi. No hydronephrosis bilaterally. There is a 0.5 cm calculus either within the posterior urinary bladder or at the right ureterovesicular junction, stable. Mildly complex bilateral renal cysts are present. Retroperitoneum: No lymphadenopathy. Bowel and mesentery: Bowel is not obstructed. No significant ascites. No pneumoperitoneum. Bladder: Bladder calculus as above. Reproductive organs: No significant prostatomegaly. Pelvic lymph nodes: No lymphadenopathy. Vessels: Atherosclerotic calcifications. Abdominal wall: No acute abdominal wall abnormality. Bones: Severe multilevel degenerative changes of the spine. Bones are osteopenic. Severe scoliosis. Postsurgical changes of L3-L5. Posterior changes of the left femur. IMPRESSION: 1. Stable 0.5 cm calculus either within the posterior urinary bladder or at the right ureterovesicular junction. No hydronephrosis. 2. Additional multiple subcentimeter nonobstructing bilateral renal calculi. 3. Mildly complex bilateral renal cysts. Please note that all CT scans at this facility use dose modulation, iterative reconstruction, and/or weight-based dosing when appropriate to reduce radiation dose to as low as reasonably achievable. Dictated by Maggie Torres MD @ 08/05/2023 10:01:50 PM (Electronically Signed)
[2023-08-05 20:55] LABS: Appearance Urine Cloudy (Clear); Bilirubin Urine Negative (Negative); Blood Urine 3+ (Negative); Color Urine Yellow (Yellow); Glucose Urine Negative (Negative); Ketones Urine Negative (Negative); Leukocyte Esterase Urine Negative (Negative); Nitrite Urine Negative (Negative); Protein Urine Trace (Negative); Urobilinogen Urine 0.2 (0.2-1.0)
[2023-08-05 21:06] LABS: Bacteria Urine Few; RBC Urine >100 (0-2); Squamous Epithelial Cell Urine Few (None-Few)
[2023-08-05 21:07] LABS: Calcium Oxalate Crystals Urine Few; Other Sediment Urine Few
--- OUTSIDE RECORDS SUMMARY | 2023-08-05 21:13 | XMS_ITS | Continuity of Care Document ---
Author Name Unknown Organization [facility] Address [address] [place] [address] Phone Care Team Providers Care Associate Professor Of Literature Name Role Phone Bob Montanez MD Unavailable [...] New Pt Eval Moderate [facility], [facility], [address], [place], [place], [address], [place] tel:[phone] Ann [facility] Neck Pain (chief complaint) Radiculopathy, cervical regionPostlaminecto my syndromeMyasthenia gravisRadiculopathy , lumbar regionType 2 diabetes mellitus with diabetic mononeuropathy 3 Tarik Rojas. [address], [place], [place], [address], [place]. tel:[phone] Referring Provider: Clint Nascimento, [address], [place], [address] . tel:[phone] CU[facility] Boggs, [address], [place], [place], [address], [place] tel:[phone] THIAGO Boggs No Information 3 MAYO HUBER. [address], [address], [place], [place], [address], [place]. tel:[phone] Family History Family Member Type Diagnosis Age At Onset No Information Payers Payer name Insurance type Covered constitution party ID Lucina carias(s) Blue Cross Medicare 16 [id number] Social History Type Description Quantity Date Captured [...] Schedule upper and lower extremity EMG at [facility] Related to Type 2 diabetes mellitus with diabetic mononeuropathy - Requested medical records from [facility], [facility], [facility], [place], Dr. Vazquez Barkley. [facility] - Schedule physical therapy evaluation, referral sent- [...] He will be receiving an EMG at [facility] in July impression Ross [...] Mental Status Date Cognitive Assessment Orientation - [place] ed to time, place, person, situation. Patient Care Teams Name Effective Dates (start - stop) Status Members No Information
--- OUTSIDE RECORDS SUMMARY | 2023-08-05 21:13 | XMS_ITS | Continuity of Care Document ---
Author Name Unknown Organization [facility] Address [address] [place] [address] Phone Care Team Providers Care Deburrer Name Role Phone García KVNGChanell Unavailable Unavailable [...] Available - Active Procedures Procedure Date Office/Outpatient Visit,[facility], Mod 2022 Office/Outpatient Visit,[facility], [facility] 2022 X-Ray Exam Of Neck Spine, 4+ [...] on Encounter [facility], [address], [place], [place], [id number], [place] tel:[phone] [facility] No Information Sep- 3 Formerly [facility]. [facility], [address] [place] [address] [address], [place], [address], [place]. tel:[phone] Referring Provider: Vazquez Ferris, [facility] [address] [place], [address]. tel:[phone] Office/Outpat ient Visit,Est, Mod [facility], [address], [place], [place], [id number], [place] tel:[phone] [facility] Arthrodesis statusSpinal stenosis, thoracic regionMyelopathy Sep-0 3 Formerly [facility]. [facility], [address], [place], [address], [place]. tel:[phone] Referring Provider: Vazquez Ferris, [facility] [address], [place], [address]. tel:[phone] Office/Outpat ient Visit,New, Mod [facility], [address], [place], [id number], [place] tel:[phone] [facility] Other spondylosis, cervical regionOther spondylosis, lumbar region 3 Garcíadanika Lua. [facility], [address], [place], [address], [place]. [phone] Referring Provider: Vazquez Ferris, [facility] [address], [place], [address]. tel:[phone] Office/Outpat ient Visit,Est, Mod [facility], [address], [place], [id number], [place] tel:[phone] [facility] Spinal stenosis, lumbar region NOS 9 Conner Kellogg. [facility], [address] [place] [address] [address], [facility] [place], [address] , [place]. [phone] Referring Provider: Vazquez Ferris, [facility] [address], [place], [address]. tel:[phone] Office/Outpat ient Visit,Est, Mod [facility], [address], [place], [address], [place] tel:[phone] [facility] Spinal stenosis, lumbar region NOS 8 Conner Kellogg. [facility], [address], [facility] [place], [id number] , [place]. [phone] Referring Provider: Vazquez Ferris, [facility] [address], [place], [address]. tel:[phone] Office/Outpat ient Visit,Est, Mod [facility], [address], [place], [id number], [place] tel:[phone] [facility] Spinal stenosis, lumbar region NOS 2 7 Conner Kellogg. [facility], [address], [place], [address] , [place]. tel:[phone] Referring Provider: Vazquez Ferris, [facility] [address], [place], [address]. tel:[phone] [facility], [address], [place], [id number], [place] tel:[phone] [facility] Spinal stenosis, lumbar region Conner Kellogg. [facility], [address] [place] [address] [address], [place], [address] , [place]. [phone] Referring Provider: Vazquez Ferris, [facility] [address], [place], [address]. tel:[phone] [facility], [address], [place], [address], [place] tel:[phone] [facility] Encounter for other specified surgical aftercare Aric Pitt. [facility], [facility] [address] [place] [address] [address], [place], [address] , [place]. [phone] Referring Provider: Vazquez Ferris, [facility] [address], [place], [address]. tel:[phone] [facility], [address], [place], [id number], [place] tel:[phone] [facility] No Information Conner Kellogg. [facility], [address] [place] [address] [address], [place], [address] , [place]. tel:[phone] Referring Provider: Vazquez Ferris, [facility] [address], [place], [address]. tel:[phone] Office/Outpat ient Visit,New, Mod [facility], [address], [place], [id number], [place] tel:[phone] [facility] Spinal stenosis, lumbar region 7 Conner Kellogg. [facility], [address], [place], [place], [id number] , [place]. tel:[phone] Referring Provider: Vazquez Ferris, [facility] [address] , [place], [address]. tel:[phone] Family History Family Member Type Diagnosis Age [...]
--- OUTSIDE RECORDS SUMMARY | 2023-08-05 21:13 | XMS_ITS | Continuity of Care Document ---
Author Name Unknown Organization [facility] Address [address] [address] [place] [address] Phone Care Team Providers Care Fish Salter Name Role Phone Maximus Lakhani MD Unavailable Unavailabl e Allergies, Adverse Reactions, Alerts Substance Reaction Status Criticality No Known Drug Allergies Active No I nformation Medications Medication Instructions Dosage Effective Dates (start - stop) Status Comments allopurinol 100 mg tablet take 1 tablet by oral route every day 100 MG - Active cholecalciferol (vitamin D3) 10 mcg (400 unit) tablet take 1 Tablet by Oral route every day 1 Tablet - Active finasteride 5 mg tablet take 1 tablet by oral route every day 5 MG - Active furosemide 20 mg tablet take 1 tablet by ORAL route every day 20 MG - Active gabapentin 100 mg capsule take 1 Capsule by ORAL route 3 times every day 100 MG - Active metformin 500 mg tablet take 2 Tablet by ORAL route 2 times every day with morning and evening meals 1000 MG - Active pyridostigmine bromide 60 mg tablet take 1 tablet by oral route 3 times every day 60 MG - Active multivitamin tablet take 1 tablet by oral route every day with food - Active Procedures Procedure Date Colonoscopy Flex; W/remov Les- Level Iv-surg Path Gross/micro Advance Directives Directive Yes / No Effective Date File Name No Information Encounters Encounter Description Practice Location Reason(s) For Visit Diagnoses Date Provider Providers Copied on Encounter [facility], [address] [address], [place], [id number], [place] tel:[phone] [facility] No Information 3 Meir Stroud. [address] [facility] [address], [place], [place], [id number], [place]. tel:[phone] [facility], [address] [address], [place], [id number], [place] tel:[phone] [facility] Colorectal polypsInternal and external hemorrhoids without complicationEnco unter for screening for malignant neoplasm of colonPolyp of colon 2 Norbert Turner. [address], [facility] [facility] [address], [place], [place], [id number], [place]. tel:[phone] Referring Provider: Vazquez Ferris, [address] , [place], [address]. tel:[phone] [facility], [address] [address], [place], [id number], [place] tel:[phone] No Information 2 No Information Referring Provider: Vazquez Ferris, [address] , [place], [address]. tel:[phone] Family History Family Member Type Diagnosis Age At Onset Daughter Problem Cholelithiasis Father Problem (finding) Mother Problem (finding) Father Problem Cancer, prostate Daughter Problem Alive and well Immunizations Vaccine Date Status Comments influenza, high-dose seasona l, quadrivalent, .7mL dose, preservative free administered Note: [facility] bi-direct ional interface ; Source: Other Registry SARS-COV-2 (COVID-19) vaccin e, mRNA, spike protein, LNP, preservative free, 100 mcg/0.5mL dose or 50 mcg/0.25mL dose administered Note: [facility] bi -directional interface ; Source: Other Registry SARS-COV-2 (COVID-19) vaccin e, mRNA, spike protein, LNP, preservative free, 100 mcg/0.5mL dose or 50 mcg/0.25mL dose administered Note: [facility] bi -directional interface ; Source: Other Registry influenza, high dose seasona l, preservative-free administered Note: [facility] bi-direct ional interface ; Source: Other Registry influenza, high dose seasona l, preservative-free administered Note: [facility] bi-direct ional interface ; Source: Other Registry influenza, high dose seasona l, preservative-free administered Note: [facility] bi-direct ional interface ; Source: Other Registry influenza, high dose seasona l, preservative-free administered Note: [facility] bi-direct ional interface ; Source: Other Registry influenza, high dose seasona l, preservative-free administered Note: [facility] bi-direct ional interface ; Source: Other Registry influenza virus vaccine, unspecified formulation administered Note: [facility] bi-di rectional interface ; Source: Other Registry influenza, high dose seasona l, preservative-free administered Note: [facility] bi-direct ional interface ; Source: Other Registry Prevnar 13 administered Note: [facility] bi-d irectional interface ; Source: Other Registry influenza, high dose seasona l, preservative-free administered Note: [facility] bi-direct ional interface ; Source: Other Registry Influenza, seasonal, injecta ble, preservative free administered Note: [facility] bi-direct ional interface ; Source: Other Registry tetanus toxoid, reduced diphtheria toxoid, and acellular pertussis vaccine, adsorbed administered Note: [facility] b i-directional interface ; Source: Other Registry Influenza, seasonal, injecta ble, preservative free administered Note: [facility] bi-direct ional interface ; Source: Other Registry Influenza, seasonal, injecta ble, preservative free administered Note: [facility] bi-direct ional interface ; Source: Other Registry Influenza, seasonal, injecta ble, preservative free administered Note: [facility] bi-direct ional interface ; Source: Other Registry Novel [id number], all formulations administered Note: [facility] bi-direct ional interface ; Source: Other Registry influenza virus vaccine, unspecified formulation administered Note: [facility] bi-di rectional interface ; Source: Other Registry Influenza, seasonal, injectable administe red Note: [facility] bi- directional interface ; Source: Other Registry Pneumovax 23 administered Note: [facility] bi-d irectional interface ; Source: Other Registry zoster vaccine, live administered Note: [facility] bi-directional interface ; Source: Other Registry tetanus and diphtheria toxoi ds, adsorbed, preservative free, for adult use (5 Lf of tetanus toxoid and 2 Lf of diphtheria toxoid) administered Note: [facility] bi-direct ional interface ; Source: Other Registry hepatitis B vaccine, unspeci fied formulation administered Note: [facility] bi-direct ional interface ; Source: Other Registry hepatitis B vaccine, unspeci fied formulation administered Note: [facility] bi-direct ional interface ; Source: Other Registry hepatitis B vaccine, unspeci fied formulation administered Note: [facility] bi-direct ional interface ; Source: Other Registry Payers Payer name Insurance type Covered democrat ID Authoriza tion(s) No Information Social History Type Description Quantity Date Captured Comments Sex Male Smoking Status No Information Chief Complaint And Reason For Visit No Information Reason For Referral Reason For Referral No Information History Of Present Illness Encounter Date Complaint History Of Prese nt Illness No Information Functional Status Date Functional Assessmen t No Information Instructions Date Instruction Additional Infor mation High Fiber Diet Related to Color ectal polyps Colon Polyps Related to Color ectal polyps Colon Cancer Prevention Related to Colorectal polyps Hemorrhoids Related to Color ectal polyps Assessments Type Assessment Date No Information Patient Care Teams Name Effective Dates (start - stop) Status Members No Information
--- NOTE | 2023-08-05 21:58 | ED_ITS ---
HPI - General Adult General Date Seen: 08/05/23 Chief complaint: Urogenital Problems, Male Stated complaint: blood in urine Time Seen by Provider: 08/05/23 20:34 Source: patient and family Mode of arrival: ambulatory Limitations: no limitations History of Present Illness HPI narrative: Patient is an 82-year-old here with his daughter for evaluation of hematuria which started shortly prior to presentation. He has chronic intermittent right abdominal pain and that seems a little bit worse although it is otherwise in the same place as usual. His daughter said he has had some pain there since having his gallbladder out several years ago, this has been getting worse and he has been having some associated weight loss so he had a CT of the chest abdomen pelvis on July 28. He was noted to have dilation of the biliary system and is scheduled for an MRCP next week. The hematuria is new today however. He does have a history of known kidney stones, had lithotripsy last year and his daughter says that he occasionally passes little bits and pieces of stones. Usually when he is passing significant kidney stone he gets diaphoretic, vomiting severe pain etcetera and he has not had any of that today. He has not had dysuria or frequency/urgency, has not had fevers. Actually when he provided a urine sample here his daughter says that it looked pretty much back to normal. Related Data Home Medications Medication Instructions Recorded Confirmed pyridostigmine bromide 60 mg tablet mg 03/31/22 07/19/23 ergocalciferol (vitamin D2) 10 mcg 2,000 unit PO DAILY 04/06/22 08/05/23 (400 unit) tablet multivitamin 1 tab PO QDAY 04/06/22 08/05/23 Previous Rx's Medication Instructions Recorded metoclopramide HCl 5 mg tablet 5 mg PO TID PRN nausea and 03/31/22 (Reglan) vomiting #7 tabs allopurinol 100 mg tablet See Rx Instructions .Route 08/28/22 .COMPLEX #270 tabs amlodipine 2.5 mg tablet 2.5 mg PO QDAY #90 tabs 01/13/23 finasteride 5 mg tablet 5 mg PO QDAY #90 tabs 02/03/23 pioglitazone 15 mg tablet 15 mg PO QDAY #90 tabs 05/12/23 sertraline 50 mg tablet 25 - 50 mg (0.5 - 1 x 50 mg) PO 06/28/23 QDAY #30 tabs Allergies Allergy/AdvReac Type Severity Reaction Status Date / Time No Known Drug Allergies Allergy Verified 07/28/23 14:08 Review of Systems Status of ROS: Reports: 10 or more systems reviewed and unremarkable except as noted in History and below [facility] Medical History History of nephrolithiasis ?Z87.442 - Personal history of urinary calculi (ICD-10) Surgical History History of open reduction and internal fixation (ORIF) procedure ?Z98.890 - Other specified postprocedural states (ICD-10) History of total bilateral knee replacement ?Z96.653 - Presence of artificial knee joint, bilateral (ICD-10) History of cervical spinal surgery ?Z98.890 - Other specified postprocedural states (ICD-10) History of lumbar fusion ?Z98.1 - Arthrodesis status (ICD-10) Status post tendon repair ?Z98.890 - Other specified postprocedural states (ICD-10) History of cholecystectomy ?Z90.49 - Acquired absence of other specified parts of digestive tract (ICD- 10) History of transurethral resection of prostate (2004) ?Z98.890 - Other specified postprocedural states (ICD-10) ?Z90.79 - Acquired absence of other genital organ(s) (ICD-10) Family History Father Prostate cancer Diabetes Paternal Grandfather Prostate cancer Social History Smoking Status: Never smoker Do you use any of these nicotine containing products: None How often do you have a drink containing alcohol: never AUDIT-C Alcohol total score: 0 Non-prescribed substance use: denies use Little interest or pleasure in doing things: more than half the days Feeling down, depressed, or hopeless: more than half the days Exam Narrative: Exam Narrative: Vital signs as noted above. In general, an alert, nontoxic elderly male. Looks comfortable. Head: Normocephalic, atraumatic. Eyes: Pupils are equal reactive. Extraocular movements are full. Conjunctivae are normal. ENT: Mucous membranes are moist. Neck: Supple without lymphadenopathy. Heart: Regular rate and rhythm. No murmur or rub. Lungs: Clear bilaterally. No increased work of breathing, crackles or wheezes. Abdomen: Soft and nontender. No organomegaly. Extremities: Well perfused. No edema. No calf tenderness. Pulses intact. Neurologic: Patient is alert and oriented to person and place. Speech is fluent. Face is symmetric. Moves all extremities equally. Affect: Normal. Skin: Warm and dry. Well perfused. Const: Vital Signs, click to edit/add: Vital Signs - 24 hr 08/05/23 19:48 Temperature 98.1 F Pulse Rate [Pulse Oximeter] 72 Respiratory Rate 18 Blood Pressure [Le ft Upper Arm] 151/66 H Pulse Oximetry 97 Oxygen Delivery Me thod Room Air Documenting provider has reviewed patient's vital signs: yes Course Course ED Course: I checked a UA here. He does have greater than 100 red cells, 5-10 white blood cells, my suspicion for infection is fairly low. I repeated a CT scan just to see if he had a kidney stone that had moved, he did have multiple nonobstructing stones seen on his CT scan from last week, which I reviewed personally. My review of today CT scan continues to show nonobstructing stones in the kidneys but I do not see hydronephrosis or obvious ureteral stone. Final radiology read is as follows:FINDINGS: Lower chest: Stable fibrotic changes in the right lower lobe. No focal consolidation. Evaluation of solid organs is limited secondary to lack of IV contrast administration. Liver: Scattered punctate calcified granulomas. Stable subcentimeter hypodense lesion in the right lobe of the liver. Gallbladder and bile ducts: Postcholecystectomy. Prominence of the biliary ducts may be secondary to post cholecystectomy state. Pancreas: Mild fatty atrophy. Spleen: Punctate calcified granulomas. Adrenal glands: Unremarkable. Kidneys: Multiple punctate nonobstructing bilateral renal calculi. No hydronephrosis bilaterally. There is a 0.5 cm calculus either within the posterior urinary bladder or at the right ureterovesicular junction, stable. Mildly complex bilateral renal cysts are present. Retroperitoneum: No lymphadenopathy. Bowel and mesentery: Bowel is not obstructed. No significant ascites. No pneumoperitoneum. Bladder: Bladder calculus as above. Reproductive organs: No significant prostatomegaly. Pelvic lymph nodes: No lymphadenopathy. Vessels: Atherosclerotic calcifications. Abdominal wall: No acute abdominal wall abnormality. Bones: Severe multilevel degenerative changes of the spine. Bones are osteopenic. Severe scoliosis. Postsurgical changes of L3-L5. Posterior changes of the left femur. IMPRESSION: 1. Stable 0.5 cm calculus either within the posterior urinary bladder or at the right ureterovesicular junction. No hydronephrosis. 2. Additional multiple subcentimeter nonobstructing bilateral renal calculi. 3. Mildly complex bilateral renal cysts. Reviewed all this with the patient and his daughter. Would recommend urology follow-up, discussed reasons to return such as signs of infection or urinary retention. Vital Signs Vital signs: Initial Vital Signs Temperature 98.1 F 08/05/23 19:48 Temperature Source Temporal Artery Scan 08/05/23 19:48 Pulse Rate 72 08/05/23 19:48 Respiratory Rate 18 08/05/23 19:48 Blood Pressure 151/66 H 08/05/23 19:48 Blood Pressure Mean 94 08/05/23 19:48 Blood Pressure Position Sitting 08/05/23 19:48 Pulse Oximetry 97 08/05/23 19:48 Oxygen Delivery Method Room Air 08/05/23 19:48 Vital Signs Temperature 98.1 F 08/05/23 19:48 Pulse Rate 72 08/05/23 19:48 Respiratory Rate 18 08/05/23 19:48 Blood Pressure 151/66 H 08/05/23 19:48 Pulse Oximetry 97 08/05/23 19:48 Oxygen Delivery Method Room Air 08/05/23 19:48 Temperature 98.1 F 08/05/23 19:48 Pulse Rate 72 08/05/23 19:48 Respiratory Rate 18 08/05/23 19:48 Blood Pressure 151/66 H 08/05/23 19:48 Pulse Oximetry 97 08/05/23 19:48 Oxygen Delivery Method Room Air 08/05/23 19:48 Medical Decision Making Lab Data Labs: Lab Results 08/05/23 Range/Units 20:36 Urine Color Yellow (Yellow) Urine Appearance Cloudy A (Clear) Urine pH 6.0 (5.0-8.5) Ur Specific [place] 1.020 (1.000-1.030) Urine Protein Trace A (Negative) Urine Glucose (UA) Negative (Negative) Urine Ketones Negative (Negative) Urine Blood 3+ A (Negative) Urine Nitrite Negative (Negative) Urine Bilirubin Negative (Negative) Urine Urobilinogen 0.2 (0.2-1.0) Ur Leukocyte Esterase Negative (Negative) Urine RBC >100 A (0-2) Urine WBC 5-10 A (0-5) Ur Squamous Epith Cells Few (None-Few) Calcium Oxalate Crystal Few A (None) Other Sediment Few A (None) Urine Bacteria Few A (None) Discharge Plan Discharge Clinical Impression: Hematuria Patient Disposition: Home, Self-Care Instructions: Hematuria (ED) Additional Instructions: I would recommend urology follow-up for further evaluation of hematuria. Other evaluation as planned. Return for urinary retention, fevers, painful urination or other worsening. Prescriptions: No Action multivitamin Tablet 1 tab PO QDAY ergocalciferol (vitamin D2) 10 mcg (400 unit) tablet 2,000 unit PO DAILY amlodipine 2.5 mg tablet 2.5 mg PO QDAY Qty: 90 3RF pyridostigmine bromide 60 mg tablet metoclopramide HCl [Reglan] 5 mg tablet 5 mg PO TID PRN (Reason: nausea and vomiting) Qty: 7 0RF allopurinol 100 mg tablet See Rx Instructions .ROUTE .COMPLEX Qty: 270 1RF Dose Instruction: TAKE ONE TABLET BY MOUTH EVERY DAY Rx Instructions: TAKE ONE TABLET BY MOUTH EVERY DAY finasteride 5 mg tablet 5 mg PO QDAY Qty: 90 3RF pioglitazone 15 mg tablet 15 mg PO QDAY Qty: 90 0RF sertraline 50 mg tablet 25 - 50 mg PO QDAY Qty: 30 5RF Rx Instructions: Half tab daily for 6 days then 1 tab daily. Follow Up/Referrals: Fatou Sherwood MD [Primary Care Provider] - Stand Alone Forms: [employer] Info Instructions
[2023-08-05 22:30] VITALS: BP 145/60; PULSE 70; RESP 18; TEMP 36.6; O2SAT 95
--- NOTE | 2023-08-05 22:44 | PC.NURSE ---
patient DC accompanied by daughter. DC instructions gone over with patient and daughter with no further questions.
== END 2023-08-05 22:31 | disposition home or self-care (01) ==
PROVIDERS: Emergency Provider Emergency Medicine; PCP Internal Medicine
DX: R31.9 Hematuria, unspecified (principal)
CPT/HCPCS: 74176; 81001; 87086; 99283; 99284

== ENCOUNTER 2023-08-13 08:55 | Outpatient (CLI) | payer MEDICARE, BC, SELFPAY ==
--- OUTSIDE RECORDS SUMMARY | 2023-08-13 08:58 | XMS_ITS | Continuity of Care Document ---
Author Name Unknown Organization [facility] Address [address] [place] [address] Phone Care Team Providers Care Arabic Translator Name Role Phone Bob Montanez MD Unavailable [...] New Pt Eval Moderate [facility], CUATE, [address], [place], [place], [address], [place] tel:[phone] [facility] Neck Pain (chief complaint) Radiculopathy, cervical regionPostlaminecto my syndromeMyasthenia gravisRadiculopathy , lumbar regionType 2 diabetes mellitus with diabetic mononeuropathy 3 Tarik Rojas. [address], [place], [place], [address], [place]. tel:[phone] Referring Provider: Clint Nascimento, [address], [place], [address] . tel:[phone] CUATE Boggs, [address], [place], [place], [address], [place] tel:[phone] THIAGO Boggs No Information 3 MAYO HUBER. [address], [address], [place], [place], [address], [place]. tel:[phone] Family History Family Member Type Diagnosis Age At Onset No Information Payers Payer name Insurance type Covered democrat ID Lucina carias(s) Blue Cross Medicare 16 [id number] Social History Type Description Quantity Date Captured [...] Schedule upper and lower extremity EMG at [facility] Related to Type 2 diabetes mellitus with diabetic mononeuropathy - Requested medical records from [facility], [facility], [facility], [place], Dr. Vazquez Barkley. [facility] - Schedule physical therapy evaluation, referral sent- [...] He will be receiving an EMG at [facility] in July impression Ross [...] Mental Status Date Cognitive Assessment Orientation - Phyllis ed to time, place, person, situation. Patient Care Teams Name Effective Dates (start - stop) Status Members No Information
--- OUTSIDE RECORDS SUMMARY | 2023-08-13 08:58 | XMS_ITS | Continuity of Care Document ---
Author Name Unknown Organization [facility] Address [address] [place] [address] Phone Care Team Providers Care Remnants Cutter Name Role Phone García KVNGClintChanell Unavailable Unavailable Allergies, Adverse Reactions, Alerts Substance Reaction Status Criticality No Known Allergies Active No Inform ation Medications Medication Instructions Dosage Effective Dates (start - stop) Status Comments VITAMIN D2 (unknown strength) Not Available - Active MULTIVITAMINS (unknown strength) Not Available - Active ASPIRIN (unknown strength) Not Available - Active FINASTERIDE (unknown strength) Not Available - Active ALLOPURINOL (unknown strength) Not Available - Active GABAPENTIN (unknown strength) take 1 by Oral route TID Not Available - Active Procedures Procedure Date Office/Outpatient Visit,[facility], Mod 2022 Office/Outpatient Visit,[facility] 2022 X-Ray Exam Of Neck Spine, 4+ [...] on Encounter [facility], [address], [place], [place], [id number], [place] tel:[phone] [facility] No Information Sep- 3 [facility]. [facility], [address] [place] [address] [address], [place], [address], [place]. tel:[phone] Referring Provider: Vazquez Ferris, [facility] [address] [place], [address]. tel:[phone] Office/Outpat ient Visit,Est, Mod [facility], [address], [place], [place], [address], [place] tel:[phone] [facility] Arthrodesis statusSpinal stenosis, thoracic regionMyelopathy Sep-0 3 [facility]. [facility], [address], [place], [address], [place]. tel:[phone] Referring Provider: Vazquez Ferris, [facility] [address], [place], [address]. tel:[phone] Office/Outpat ient Visit,New, Mod [facility], [address], [place], [address], [place] tel:[phone] [facility] Other spondylosis, cervical regionOther spondylosis, lumbar region 3 Garcíadanika Lua. [facility], [address], [place], [address], [place]. [phone] Referring Provider: Vazquez Ferris, [facility] [address], [place], [address]. tel:[phone] Office/Outpat ient Visit,Est, Mod [facility], [address], [place], [place], [address], [place] tel:[phone] [facility] Spinal stenosis, lumbar region NOS 9 Conner Kellogg. [facility], [address] [place] [address] [address], [facility] [place], [address] , [place]. [phone] Referring Provider: Vazquez Ferris, [facility] [address], [place], [address]. tel:[phone] Office/Outpat ient Visit,Est, Mod [facility], [address], [place], [address], [place] tel:[phone] [facility] Spinal stenosis, lumbar region NOS 8 Conner Kellogg. [facility], [address], [facility] [place], [address] , [place]. [phone] Referring Provider: Vazquez Ferris, [facility] [address], [place], [address]. tel:[phone] Office/Outpat ient Visit,Est, Mod [facility], [address], [place], [address], [place] tel:[phone] [facility] Spinal stenosis, lumbar region NOS 2 7 Conner Kellogg. [facility], [address], [place], [address] , [place]. tel:[phone] Referring Provider: Vazquez Ferris, [facility] [address], [place], [address]. tel:[phone] [facility], [address], [place], [address], [place] tel:[phone] [facility] Spinal stenosis, lumbar region Conner Kellogg. [facility], [address] [place] [address] [address], [place], [address] , [place]. [phone] Referring Provider: Vazquez Ferris, [facility] [address], [place], [address]. tel:[phone] [facility], [address], [place], [address], [place] tel:[phone] [facility] Encounter for other specified surgical aftercare Aric Pitt. [facility], [facility] [address] [place] [address] [address], [place], [address] , [place]. [phone] Referring Provider: Vazquez Ferris, [facility] [address], [place], [address]. tel:[phone] [facility], [address], [place], [address], [place] tel:[phone] [facility] No Information Conner Kellogg. [facility], [address] [place] [address] [address], [place], [address] , [place]. tel:[phone] Referring Provider: Vazquez Ferris, [facility] [address], [place], [address]. tel:[phone] Office/Outpat ient Visit,New, Mod [facility], [address], [place], [address], [place] tel:[phone] [facility] - [facility] Spinal stenosis, lumbar region 7 Conner Kellogg. [facility], [address], [place], [place], [address] , [place]. [phone] Referring Provider: Vazquez Ferris, [facility] [address] , [place], [address]. tel:[phone] Family History Family Member Type Diagnosis Age [...] Instructions Date Instruction Additional Infor mation Weight management: I nstructed to return to General Practitioner timeframe: 1 Month. Related to Overweight Weight Management Education Rela mauri to Overweight Weight management: I nstructed to return to General Practitioner timeframe: 1 Month. Related to Overweight Weight Management Education Rela mauri to Overweight Assessments Type Assessment Date No Information Patient Care Teams Name Effective Dates (start - stop) Status Members No Information
--- NOTE | 2023-08-13 09:15 | CRLHL7_ITS ---
For Patients: As a result of the Century Cures Act, medical imaging exams and procedure reports are released immediately into your electronic medical record. You may view this report before your referring provider. If you have questions, please contact your health care provider. INDICATION: Bile duct dilation. COMPARISON: CT scan of the chest, abdomen, and pelvis dated 28 July 2023. TECHNIQUE: Abdominal MRI with T1 in- and out of phase, T2, diffusion weighted, and progressively delayed post-contrast images. Intravenous gadolinium administered. Heavily T2 weighted 2D and 3D MRCP images. FINDINGS: No fatty infiltration of the liver. 1.1 cm cyst located the junction of segments 7 and 8 of the liver. Punctate calcified granulomas in the spleen. No other focal abnormalities identified in the visualized portions of the liver, spleen, pancreas, and adrenal glands. Bilateral renal cysts with the largest extending off the superior pole of the right kidney measuring 3.6 cm. No hydronephrosis. No adenopathy. Mild dilation of the common bile duct measuring 1.1 cm. Minimal intrahepatic bile duct dilation. Cholecystectomy. No filling defects in the biliary system. Normal size of the main pancreatic duct. Elevation of the right hemidiaphragm. Significant scoliotic changes of the spine. Stabilization hardware in the lumbar spine. Impression : 1. Mild bile duct dilation. This could be secondary to a previously passed stone. No current choledocholithiasis. 2. Normal size of the main pancreatic duct. 3. Cholecystectomy. 4. Elevation of the right hemidiaphragm. Significant scoliotic changes of the spine. Dictated by Narayan Thoams MD @ 08/15/2023 12:02:25 PM (Electronically Signed)
== END 2023-08-13 08:56 | disposition home or self-care (01) ==
LOC: MRI 08:56
PROVIDERS: PCP Internal Medicine; Visit Provider Internal Medicine
DX: K86.89 Other specified diseases of pancreas (principal); K76.89 Other specified diseases of liver; N28.1 Cyst of kidney, acquired
CPT/HCPCS: 74183; A9575

== ENCOUNTER 2023-12-06 14:18 | Outpatient (CLI) | payer MEDICARE, BC, SELFPAY ==
--- OUTSIDE RECORDS SUMMARY | 2023-12-06 14:22 | XMS_ITS | Clinical Summary ---
Author Name Unknown Organization [facility] Address [address] [place] [address] Care Team Providers Care Firebrick Layer Name Role Phone Vazquez Ivan MD Primary Care Provider [phone] Tunde Herbert MD Unavailable [phone] Radha Main MD Unavailable Manolo Drake MD Unavailable [phone] Tunde Herbert MD Unavailable [phone] Allergies No known active allergies Medications Medication Sig Dispensed Refills Start Date End Date Status finasteride (PROSCAR) 5 MG tablet Take 5 mg by mouth 08/22/2015 Active allopurinol (ZYLOPRIM) 100 MG tablet Take 100 mg by mouth Active Cholecalciferol (VITAMIN D3) 1000 units CAPS Take 1,000 Units by mouth Active aspirin 81 MG EC tablet Take 162 mg by mouth 12/16/2015 Active Multiple Vitamin (MULTIVITAMINS PO) Active furosemide (LASIX) 20 MG tablet Take 20 mg by mouth daily 01/22/2022 Active gabapentin (NEURONTIN) 100 MG capsule TAKE ONE CAPSULE BY MOUTH THREE TIMES A DAY 01/22/2022 Active allopurinol (ZYLOPRIM) 100 MG tablet Take by mouth every 24 hours 02/04/2022 Active tamsulosin (FLOMAX) 0.4 MG capsule Take 0.4 mg by mouth daily 04/13/2022 Active cholecalciferol (VITAMIN D3) 10 mcg (400 units) TABS tablet Take by mouth every 24 hours 02/04/2022 Active metFORMIN (GLUCOPHAGE) 500 MG tablet TAKE TWO TABLETS BY MOUTH EVERY DAY AT SUPPER DIRECTED 04/21/2022 Active ondansetron (ZOFRAN ODT) 4 MG ODT tabIndications:Bilater al nephrolithiasis Take 1 tablet (4 mg) by mouth every 8 hours as needed for nausea 10 tablet 04/24/2022 Active metoclopramide (REGLAN) 5 MG tabletIndications:Bila teral nephrolithiasis Take 1 tablet (5 mg) by mouth 3 times daily as needed (nausea/vomitin g) 12 tablet 1 04/24/2022 Active pyridostigmine (MESTINON) 60 MG tabletIndications:Dipl opia Take 1 tablet (60 mg) by mouth every 4 hours 540 tablet 3 11/10/2022 Active Active Problems Problem Noted Date Diagnosed Date Bilateral nephrolithiasis 04/28/2022 Social History Tobacco Use Types Packs/Day Years Used Date Smoking Tobacco: Former Smokeless Tobacco: Never Alcohol Use Standard Drinks/Week Comments Not Currently 0 (1 standard drink = 0.6 oz pur e alcohol) PHQ-2 Answer Date Recorded PHQ-2 Score 0 06/19/2022 Adolescent Education Answer Date Record ed Getting School Help Needed Not on file 05/07 Sex and Gender Information Value Date Recorded Sex Assigned at Male 01/18/2021 9:08 PM CDT Gender Identity Male 01/18/2021 9:08 PM CDT Sexual Orientation Not on file Last Filed Vital Signs Vital Sign Reading Time Taken Comments Blood Pressure 140/82 04/28/2022 12:54 PM CDT Pulse 88 04/28/2022 12:54 PM CDT Temperature 36.5 ??C (97.7 ??F) 04/28/2022 12:54 PM C DT Respiratory Rate 17 04/28/2022 12:54 PM CDT Oxygen Saturation 100% 04/28/2022 12:54 PM CDT Inhaled Oxygen Concentration - - Weight 76 kg (167 lb 8 oz) 04/28/2022 7:49 AM CD T Height 162.6 cm (5' 4) 04/28/2022 7:49 AM CDT Body Mass Index 28.75 04/28/2022 7:49 AM CDT Plan of Treatment Health Maintenance Due Date Last Done Comments ADVANCE CARE PLANNING 1942 ANNUAL REVIEW OF HM ORDERS 1942 RSV VACCINE ( & 60+) (1 - 1-dose 60+ series) 2002 ZOSTER IMMUNIZATION (2 of 3) 04/11/2007 02/14/2007 FALL RISK ASSESSMENT 11/26/2007 MEDICARE ANNUAL WELLNESS VISIT 11/26/2007 DTAP/TDAP/TD IMMUNIZATION (2 - Td or Tdap) 08/24/2022 08/24/2012, 02/14/2007 COVID-19 Vaccine (4 - season) 2023 06/24/2022, 09/30/2020, 09/02/2020 INFLUENZA VACCINE (#1) 2023 , 06/02/2021, 05/23/2020, Additional history exists PHQ-2 (once per calendar year) 2023 06/19/2022, 01/21/2021 Pneumococcal Vaccine: 65+ Years Completed 04/03/2015, 03/14/2008 HPV IMMUNIZATION Aged Out No longer e ligible based on patient's age to complete this topic IPV IMMUNIZATION Aged Out No longer e ligible based on patient's age to complete this topic MENINGITIS IMMUNIZATION Aged Out No l onger eligible based on patient's age to complete this topic RSV MONOCLONAL ANTIBODY Aged Out No l onger eligible based on patient's age to complete this topic Medical Devices Implanted Type Area Gift Consultant Device Identifier Shelf Expiration Date Model / Serial / Lot Stent Ureteral Polaris Ultra [id number] - [id number] Implanted:Qty: 1 on 04/28/2022 by Manolo Drake MD at [facility] Stent Right: Urethra [employer] 12/05/2024 [id number] / / [id number] Stent Ureteral Polaris Ultra [id number] - [id number] Implanted:Qty: 1 on 04/28/2022 by Manolo Drake MD at [facility] Stent Left: Urethra [employer] 12/19/2024 [id number] / / [id number] Care Teams Firebrick Layer Relationship Specialty Start Date End Date Vazquez Ivan MD [facility] [address] [place] [address] PCP - General Family Practice 06/28/18 Tunde Herbert MD [facility] [address] [place] [address] Ophthalmology 06/28/18 Radha Main MD [facility] [address] [place] [address] 06/28/18 Manolo Drake MD [address] [place], [place] [id number] Urology 04/17/22 Tunde Herbert MD [address] [place] [address] Assigned Surgical Provider 11/21/22
--- OUTSIDE RECORDS SUMMARY | 2023-12-06 14:22 | XMS_ITS | Encounter Summary ---
Author Name Unknown Organization [facility] Address [address] [place] [address] Care Team Providers Care Ham Passer Name Role Phone Vazquez Ivan MD Primary Care Provider [phone] Tunde Herbert MD Unavailable [phone] Radha Main MD Unavailable [phone] Tunde Herbert MD Unavailable [phone] Tunde Herbert MD Unavailable [phone] Manolo Drake MD Unavailable [phone] Manolo Drake MD Unavailable [phone] Tunde Herbert MD Unavailable [phone] Encounter Details Date Type Department Care Team (Late st Contact Info) Description 08/16/2020 External Order Results [facility] [address] [place] [address] Outside, Provider Social History Tobacco Use Types Packs/Day Years Used Date Smoking Tobacco: Never Assessed Sex and Gender Information Value Date Recorded Sex Assigned at Male 01/18/2021 9:08 PM CDT Gender Identity Male 01/18/2021 9:08 PM CDT Sexual Orientation Not on file documented as of this encounter Plan of Treatment Not on file documented as of this encounter Procedures Procedure Name Priority Date/Time Associated Diagnosis Comments COVID-19 VIRUS (CORONAVIRUS) BY PCR (EXTERNAL RESULT) Routine 08/16/2020 10:35 AM METAL DOOR ASSEMBLER documented in this encounter Results * COVID-19 Virus (Coronavirus) by PCR (External Result) (08/16/2020 10:35 AM METAL DOOR ASSEMBLER) COVID-19 Virus by PCR (External Result) ABSENT SARSCoV2 RNA NON-INTERFACE D (ONBASE SCANS) 08/16/2020 10:3 5 AM METAL DOOR ASSEMBLER Narrative [facility] - 04/28/2022 2:34 PM CDT Verified by Peter Weinstein on 04/28/2022. Provider Outside LABORATORY [facility] NON-INTERFACED (ONBASE SCANS) documented in this encounter Visit Diagnoses Not on filedocumented in this encounter Care Teams Ham Passer Relationship Specialty Start Date End Date Vazquez Ivan MD [facility] [address] [place] [address] PCP - General Family Practice 06/28/18 Tunde Herbert MD [facility] [address] [place] [address] Ophthalmology 06/28/18 Radha Main MD [facility] [address] [place] [address] 06/28/18 Tunde Herbert MD [address] [place] [address] Assigned Surgical Provider 01/26/21 Tunde Herbert MD [address] [place] [address] Assigned Surgical Provider 02/07/22 Manolo Drake MD [address] [place], [place] [address] Urology 04/17/22 Manolo Drake MD [address] [place], [place] [address] Assigned Surgical Provider 05/02/2211/20/22 Tunde Herbert MD [address] [place] [address] Assigned Surgical Provider 11/21/22 documented as of this encounter
--- OUTSIDE RECORDS SUMMARY | 2023-12-06 14:22 | XMS_ITS | Referral Summary ---
Author Name Unknown Organization [facility] Address [address] [place] [address] Care Team Providers Care Shot Examiner Name Role Phone Darrion Ivan MD Primary Care Provider [phone] [facility]- Unava ilable Tripp Cotton MD Unavailable [phone] Allergies No known active allergies Medications Medication Sig Dispensed Refills Start Date End Date Status gabapentin (NEURONTIN) 100 mg oral capsule Activ e furosemide (LASIX) 20 mg oral tablet Take 1 tablet (20 mg) by mouth Daily. 01/22/2022 Active pyRIDostigmine (MESTINON) 60 mg oral tablet TAKE ONE TABLET BY MOUTH FOUR TIMES A DAY WHILE AWAKE Active sertraline (ZOLOFT) 50 mg oral tablet TAKE 1/2 TABLET BY MOUTH DAILY FOR 6 DAYS THEN 1 TABLET DAILY. 03/15/2023 Active tamsulosin (FLOMAX) 0.4 mg oral capsule Take 1 capsule (0.4 mg) by mouth Daily. 04/13/2022 Active Active Problems Problem Noted Date Diagnosed Date Lumbar stenosis 10/08/2016 History of fracture of left hip 01/06/2016 Muscle tear 06/08/2014 Sciatica 06/08/2014 S/P total knee arthroplasty 05/14/2014 BPH (benign prostatic hyperplasia) 04/03/2014 Calculus of kidney 04/03/2014 Overview: Last episode of pain was years ago Gout 04/03/2014 Overview: Pt takes allopurinol daily Scoliosis 04/03/2014 Osteoarthritis of both knees 12/18/2013 Overview: Pt scheduled for right total knee arthroplasty on 04/19/[address] Smith. Spinal stenosis in cervical region 11/04/2013 Overview: C3-T1 fusion in 11/01/2013- [facility] Social History Tobacco Use Types Packs/Day Years Used Date Smoking Tobacco: Never Assessed Sex and Gender Information Value Date Recorded Sex Assigned at Not on file Gender Identity Not on file Sexual Orientation Not on file Plan of Treatment Not on file Procedures Procedure Name Priority Date/Time Associated Diagnosis Comments COMPREHENSIVE METABOLIC PANEL 14 ([facility]) Routine 07/26/2023 1:06 PM GLUE CLAMP OPERATOR Myasthenia gravis (HCC) from Last 3 Months or Most Recently Relevant to Health Maintenance Results * (ABNORMAL) COMPREHENSIVE METABOLIC PANEL 14 ([facility]) (07/26/2023 1:06 PM GLUE CLAMP OPERATOR) Glucose ([facility]) 79 70 - 99 mg/dL [facility] 2 BUN ([facility]) 25 8 - 27 mg/dL [facility] 2 Creatinine ([facility]) 1.04 0.76 - 1.27 mg/dL [facility] 2 eGFR ([facility]) 73 >59 mL/min/1.7 3 [facility] 2 BUN/Creatinine Ratio ([facility]) 24 10 - 24 [facility] 2 Sodium ([facility]) 144 134 - 144 mmol/L [facility] 2 Potassium ([facility]) 4.7 3.5 - 5.2 mmol/L [facility] 2 Chloride ([facility]) 104 96 - 106 mmol/L [facility] 2 Carbon Dioxide ([facility]) 28 20 - 29 mmol/L [facility] 2 Calcium ([facility]) 10.1 8.6 - 10.2 mg/dL [facility] 2 Protein Total ([facility]) 6.3 6.0 - 8.5 g/dL [facility] 2 Albumin ([facility]) 4.0 3.8 - 4.8 g/dL [facility] 2 Globulin Total ([facility]) 2.3 1.5 - 4.5 g/dL [facility] 2 A/G Ratio ([facility]) 1.7 1.2 - 2.2 [facility] 2 Bilirubin Total ([facility]) 0.3 0.0 - 1.2 mg/dL [facility] 2 Alkaline Phosphatase ([facility]) 43(L) 44 - 121 IU/L [facility] 2 AST (SGOT) ([facility]) 16 0 - 40 IU/L [facility] 2 ALT (SGPT) ([facility]) 12 0 - 44 IU/L [facility] 2 Blood 07/26/2023 1:06 PM GLUE CLAMP OPERATOR 07/26/2023 11:00 PM GLUE CLAMP OPERATOR Narrative [facility] 2 - 08/06/2023 9:09 AM GLUE CLAMP OPERATOR Performed at: ??02 - [facility] [address] ??[id number] Music Executive: Timmy Wills MD, Phone: ??[phone] Tripp Cotton MD [facility] ORDERABLES [facility] 2 from Last 3 Months or Most Recently Relevant to Health Maintenance Care Teams Shot Examiner Relationship Specialty [place] [address] [place] [address] PCP - General 01/22/23 [facility] [address] [place] [address] PCP - Primary Care Clinic 01/22/23 Tripp Cotton MD [address] [place] [address], [facility] [address] [place] [address] Neurology 03/29/23
--- OUTSIDE RECORDS SUMMARY | 2023-12-06 14:22 | XMS_ITS | Clinical Summary ---
Author Name Unknown Organization [facility] Address [address] [place] [address] Care Team Providers Care Barrel Polisher Inside Name Role Phone Darrion Ivan MD Primary Care Provider [phone] [facility]- Unava ilable Tripp Cotton MD Unavailable [phone] Allergies No known active allergies Medications [...] region 11/04/2013 Overview: C3-T1 fusion in 11/01/2013- [facility] Social History Tobacco Use Types Packs/Day Years Used Date Smoking Tobacco: Never Assessed Sex and Gender Information Value Date Recorded Sex Assigned at Not on file Gender Identity Not on file Sexual Orientation Not on file Plan of Treatment Health Maintenance Due Date Last Done Comments Colonoscopy 1942 Eye Exam 1942 HgbA1C 1942 Lipid Screening 1942 Medicare Wellness Visit 1942 Depression Assessment (PHQ-2) 11/26/1943 Yearly Review of HCD 1992 RSV 60+ Yrs (1 - 1-dose 60+ series) 2002 Zoster Vaccine (2 of 3) 04/11/2007 02/14/2007 Adult Tetanus Booster 08/24/2022 08/24/2012, 007 COVID-19 Vaccine ( - 2022-2 4 season) 2023 06/24/2022, 09/30/2020, 09/02/2020 Creatinine 07/26/2024 07/26/2023 Pneumococcal 65+ Completed 04/03/2015, 03/14/2008 Influenza Vaccine Completed 06/03/2023, , 06/02/2021, Additional history exists Procedures Procedure Name Priority Date/Time Associated Diagnosis Comments COMPREHENSIVE METABOLIC PANEL 14 ([facility]) Routine 07/26/2023 1:06 PM GIZZARD SKIN REMOVER Myasthenia gravis (HCC) from Last 3 Months or Most Recently Relevant to Health Maintenance Results * (ABNORMAL) COMPREHENSIVE METABOLIC PANEL 14 ([facility]) (07/26/2023 1:06 PM GIZZARD SKIN REMOVER) Pathologist [facility] Glucose ([facility]) 79 70 - 99 mg/dL [...] IU/L [facility] 2 Blood 07/26/2023 1:06 PM GIZZARD SKIN REMOVER 07/26/2023 11:00 PM G[facility]ZARD SKIN REMOVER Narrative [facility] 2 - 08/06/2023 9:09 AM GIZZARD SKIN REMOVER Performed at: ??02 - [facility] [address] ??[id number] Water Well Driller: Timmy Wills MD, Phone: ??[phone] Tripp Cotton MD [facility] ORDERABLES [facility] 2 from Last 3 Months or Most Recently Relevant to Health Maintenance Care Teams Barrel Polisher Inside Relationship Specialty [place] [address] [place] [address] PCP - General 01/22/23 [facility]- [address] [place] [address] PCP - Primary Care Clinic 01/22/23 Tripp Cotton MD [address] [facility], [address] [place] [address] Neurology 03/29/23
--- OUTSIDE RECORDS SUMMARY | 2023-12-06 14:22 | XMS_ITS | Encounter Summary ---
Author Name Unknown Organization [facility] Address [address] [place] [address] Care Team Providers Care Radiation Control Technician Name Role Phone Vazquez Ivan MD Primary Care Provider Tunde Herbert MD Unavailable [phone] Radha Main MD Unavailable [phone] Tunde Herbert MD Unavailable [phone] Tunde Herbert MD Unavailable [phone] Manolo Drake MD Unavailable [phone] Manolo Drake MD Unavailable [phone] Tunde Herbert MD Unavailable [phone] Encounter Details Date Type Department Care Team (Late st Contact Info) Description 10/14/2021 [facility] [address] [place] [address] Brock Roe Social History Tobacco Use Types Packs/Day Years Used Date Smoking Tobacco: Former Smokeless Tobacco: Never PHQ-2 Answer Date Recorded PHQ-2 Score 0 01/21/2021 Sex and Gender Information Value Date Recorded Sex Assigned at Male 01/18/2021 9:08 PM CDT Gender Identity Male 01/18/2021 9:08 PM CDT Sexual Orientation Not on file documented as of this encounter Plan of Treatment Not on file documented as of this encounter Visit Diagnoses Not on filedocumented in this encounter Care Teams Radiation Control Technician Relationship Specialty Start Date End Date Vazquez Ivan MD [facility] [address] [place] [address] PCP - General Family Practice 06/28/18 Tunde Herbert MD [facility] [address] [place] [address] Ophthalmology 06/28/18 Radha Main MD [facility] [address] [place] [address] 06/28/18 Tunde Herbert MD [address] [place] [address] Assigned Surgical Provider 01/26/21 Tunde Herbert MD [address] [place] [address] Assigned Surgical Provider 02/07/22 Manolo Drake MD [address] [place] [address] Urology 04/17/22 Manolo Drake MD [address] [place] [address] Assigned Surgical Provider 05/02/2211/20/22 Tunde Herbert MD [address] [place] [address] Assigned Surgical Provider 11/21/22 documented as of this encounter
--- OUTSIDE RECORDS SUMMARY | 2023-12-06 14:22 | XMS_ITS | Referral Summary ---
Author Name Unknown Organization [facility] Address [address] [place] [address] Care Team Providers Care Trade Mark Attorney Name Role Phone Vazquez Ivan MD Primary Care Provider [phone] Tunde Herbert MD Unavailable [phone] Radha Main MD Unavailable [phone] Manolo Drake MD Unavailable [phone] Tunde Herbert MD Unavailable [phone] Allergies No known active allergies Medications [...] 04/28/2022 7:49 AM CDT Plan of Treatment Not on file Medical Devices Implanted Type Area Balancer Scale Device Identifier Shelf Expiration Date Model / Serial / Lot Stent Ureteral Polaris Ultra [id number] - [id number] Implanted:Qty: 1 on 04/28/2022 by Manolo Drake MD at [facility] Stent Right: Urethra [employer] 12/05/2024 [id number] / / [id number] Stent Ureteral Polaris Ultra [id number] - [id number] Implanted:Qty: 1 on 04/28/2022 by Manolo Drake MD at [facility] Stent Left: Urethra [employer] 12/19/2024 [id number] / / [id number] Care Teams Trade Mark Attorney Relationship Specialty Start Date End Date Vazquez Ivan MD [facility] [address] [place] [address] PCP - General Family Practice 06/28/18 Tunde Herbert MD [facility] [address] [place] [address] Ophthalmology 06/28/18 Radha Main MD [facility] [address] [place] [address] 06/28/18 Manolo Drake MD [address] [place] [address] Urology 04/17/22 Tunde Herbert MD [address] [place] [id number] Assigned Surgical Provider 11/21/22
--- OUTSIDE RECORDS SUMMARY | 2023-12-06 14:22 | XMS_ITS | Encounter Summary ---
Author Name Unknown Organization [facility] Address [address] [place] [address] Care Team Providers Care Warehouse Distribution Specialist Name Role Phone Vazquez Ivan MD Primary Care Provider Tunde Herbert MD Unavailable [phone] Radha Main MD Unavailable Tunde Herbert MD Unavailable [phone] Tunde Herbert MD Unavailable [phone] Manolo Drake MD Unavailable [phone] Manolo Drake MD Unavailable [phone] Tunde Herbert MD Unavailable [phone] Encounter Details Date Type Department Care Team (Late st Contact Info) Description 12/08/2020 [facility] [address] [place] [id number] Tunde Herbert MD [address] [place] [id number] Social History Tobacco Use Types Packs/Day Years [...] on filedocumented in this encounter Care Teams Warehouse Distribution Specialist Relationship Specialty Start Date End Date Vazquez Ivan MD [facility] [address] [place] [address] PCP - General Family Practice 06/28/18 Tunde Herbert MD [facility] [address] [place] [address] Ophthalmology 06/28/18 Radha Main MD [facility] [address] [place] [address] 06/28/18 Tunde Herbert MD [address] [place] [address] Assigned Surgical Provider 01/26/21 Tunde Herbert MD [address] [place] [address] Assigned Surgical Provider 02/07/22 Manolo Drake MD [address] [place] [address] Urology 04/17/22 Manolo Drake MD [address] [place] [address] Assigned Surgical Provider 05/02/2211/20/22 Tunde Herbert MD [address] [place] [address] Assigned Surgical Provider 11/21/22 documented as of this encounter
--- OUTSIDE RECORDS SUMMARY | 2023-12-06 14:23 | XMS_ITS | Continuity of Care Document ---
Author Name Unknown Organization [facility] Address [address] [facility] [address] [place] [address] Phone Care Team Providers Care Legal Stenographer Name Role Phone Bob Montanez MD Unavailable [...] New Pt Eval Moderate [facility], CU[facility], [address], [place], [place], [id number], [place] tel:[phone] Ann [facility] Neck Pain (chief complaint) Radiculopathy, cervical regionPostlaminecto my syndromeMyasthenia gravisRadiculopathy , lumbar regionType 2 diabetes mellitus with diabetic mononeuropathy 3 Tarik Rojas. [address] [facility] [facility] [address], [place], [place], [id number], [place]. tel:[phone] Referring Provider: Clint Nascimento, [address], [place], [address] . tel:[phone] CUATE Boggs, [address], [place], [place], [id number], [place] tel:[phone] THIAGO Boggs No Information 3 MAYO HUBER. [address], [address], [place], [place], [id number], [place]. tel:[phone] Family History Family Member Type Diagnosis Age At Onset No Information Payers Payer name Insurance type Covered constitution party ID Lucina carias(s) Blue Cross Medicare 16 [id number] Social History Type Description Quantity Date Captured [...] Schedule upper and lower extremity EMG at [facility] Related to Type 2 diabetes mellitus with diabetic mononeuropathy - Requested medical records from [facility], [facility], [facility], [place], Dr. Vazquez Barkley. [facility] - Schedule physical therapy evaluation, referral [...] He will be receiving an EMG at [facility] in July impression Ross [...] Mental Status Date Cognitive Assessment Orientation - Poneto ed to time, place, person, situation. Patient Care Teams Name Effective Dates (start - stop) Status Members No Information
--- OUTSIDE RECORDS SUMMARY | 2023-12-06 14:23 | XMS_ITS | Clinical Summary ---
Author Name Unknown Organization [facility] Address [place], [place] [address] Care Team Providers Care Bill Clerk Name Role Phone Darrion Ivan MD Primary Care Provider [phone] Allergies No known active allergies Medications Medication Sig Dispensed Refills Start Date End Date Status allopurinol (ZYLOPRIM) 100 mg tablet Take 100 mg by mouth once daily. Active MULTIVITAMINS W/C ORAL Take by mouth. Active DME Right knee hinged post operative brace. Set for 0 degrees extension and 50 degrees flexion. May remove for washings. 1 unit 0 07/02/2014 Active finasteride (PROSCAR) 5 mg tabletIndications:B enign non-nodular prostatic hyperplasia without lower urinary tract symptoms Take 1 tablet by mouth every morning. 0 08/22/2015 Active aspirin (ECOTRIN) 81 mg enteric coated tablet Take 2 tablets by mouth once daily with a meal. 0 12/16/2015 Active gabapentin (NEURONTIN) 300 mg capsule Take 1 capsule by mouth 3 times daily. 0 12/16/2015 Active acetaminophen (TYLENOL EXTRA STRGTH) 500 mg tablet Take 2 tablets by mouth 3 times daily. 1-2 tabs as needed for pain management 0 12/16/2015 Active chlorthalidone (HYGROTON) 12.5 mg as half tablet Take by mouth every morning. Active cholecalciferol (VITAMIN D) 1,000 unit capsule Take 1,000 Units by mouth once daily. Active oxyCODONE (ROXICODONE) 5 mg immediate release tabletIndications:L umbar stenosis Take 1-2 tablets by mouth every 4 hours if needed for pain. 120 tablet 12/04/2016 Active Active Problems Problem Noted Date Diagnosed Date Lumbar stenosis s/p decompression and fusion s/p left hip femoral neck fr acture with ORIF, outside institution 01/06/2016 Encounter for aftercare for healing closed traumatic fracture of femur 12/16/2015 s/p right total knee arthroplasty 04/19/[address] Smith 10/07/2015 S/P left total knee arthroplasty 08/19/15 08/19/19 16 Osteoarthritis of left knee 06/24/2015 right calf edema 11/26/2014 Hip weakness 11/19/2014 Right knee s/p quad tendon repair DOS:06/08/14 1 09/16/2013 Right knee quadricept tendon rupture 06/08/2014 Obesity 06/08/2014 Sciatica 06/08/2014 Status post right total knee arthroplasty dated 04/19/2014 05/14/2014 Scoliosis 04/03/2014 Gout 04/03/2014 Overview: Pt takes allopurinol daily BPH (benign prostatic hyperp lasia) s/p LASER SURGERY PROSTATE (2004) 04/03/2014 Hx of kidney calculus 04/03/2014 Overview: Last episode of pain was years ago Osteoarthritis of both knees 12/18/2013 Overview: Pt scheduled for right total knee arthroplasty on 04/19/[address] Smith. Acute blood loss anemia 11/04/2013 Overview: For cervical fusion- no need for blood transfusion, Hemoglobin dropped 10.8 Spinal stenosis in cervical region 11/04/2013 Overview: C3-T1 fusion in 11/01/2013- [facility] HTN (hypertension) 11/02/2013 Overview: Pt takes hyrdrochlorothiazide and controlled well. ACP (advance care planning) 11/02/2013 Overview: Patient has identified Health Care Agent(s): No Add Health Care Agents: No Patient has Advance Care Plan Documents (Health Care Directive, POLST): No, referral made to Social Work Services. Patient has identified Specific Treatment Preferences: No Specific limits to treatment preferences NOT identified: ASSUME FULL TREATMENT. Resolved Problems Problem Noted Date Diagnosed Date Resolved Date S/P total knee arthroplasty 04/19/2014 05/14/2014 Immunizations Name Administration Dates Next Due Influenza Virus, Unspecified 05/18/2016,07/15/20 15 Influenza, High-dose Inactivated 06/09/2014 Family History Medical History Relation Name Comments Cancer-prostate Father Diabetes Father Other Mother Dementia Relation Name Status Comments Father Mother Social History Tobacco Use Types Packs/Day Years Used Date Smoking Tobacco: Former Cigarettes Q uit: 08/16/1983 Smokeless Tobacco: Never Tobacco Cessation:Counseling Given: No Alcohol Use Standard Drinks/Week Comments Yes 0 (1 standard drink = 0.6 oz pur e alcohol) Rare beer Sex and Gender Information Value Date Recorded Sex Assigned at Not on file Gender Identity Not on file Sexual Orientation Not on file Obstetrics History Last Filed Vital Signs Vital Sign Reading Time Taken Comments Blood Pressure 122/65 12/04/2016 9:07 AM CDT Pulse 84 12/04/2016 9:07 AM CDT Temperature 36.8 ??C (98.2 ??F) 12/04/2016 9:07 AM CD T Respiratory Rate 19 12/04/2016 9:07 AM CDT Oxygen Saturation 93% 12/04/2016 9:07 AM CDT Inhaled Oxygen Concentration - - Weight 90.6 kg (199 lb 11.8 oz) 12/01/2016 8:23 AM CDT Height 172.7 cm (5' 8) 11/30/2016 9:19 AM CDT Body Mass Index 30.37 11/30/2016 9:19 AM CDT Plan of Treatment Health Maintenance Due Date Last Done Comments Tdap 1953 Depression screening for age 12+ 1954 Tetanus booster 1962 Zoster (shingles) series for age 50+ (1 of 2) 1992 Pneumococcal series for age 65+ (1 of 1 - PCV) 11/26/2007 BMI (ht and wt on same day) for age 18+ 10/23/2017 10/23/2016 COVID-19 vaccine series (2022-24 season) 2023 06/24/2022, 09/30/2020, 09/02/2020 Influenza for age 65+ 04/16/2024 05/18/2016 , 07/15/2015, 06/09/2014 Medical Devices Implanted Type Area Regional Forester Device Identifier Shelf Expiration Date Model / Serial / Lot Baseplate Tib Lt Sz6 Aaliyah Ii Titnm Non Pors - [id number] Implanted:Qty: 1 on 08/19/2015 by Thomas Guo MD at [facility] Ortho Total Joint Left: Knee [employer] 02/12/2025 [id number]# / / [id number] Mejia Lmbr 70x5.5mm Tsrh 3d Cvd Titnm - [id number] Implanted:Qty: 1 on 12/01/2016 by Valdez Prieto MD at [facility] Spine Implants N/A: Lumbar Vertebrae Medtronic Spine/Ortho [id number]# / / Mejia Lmbr 60x5.5mm Tsrh 3d Cvd Titnm - [id number] Implanted:Qty: 1 on 12/01/2016 by Valdez Prieto MD at [facility] Spine Implants N/A: Lumbar Vertebrae Medtronic Spine/Ortho [id number]# / / Bone Matrix Xsm Infuse Bmp - [id number] Implanted:Qty: 1 on 11/01/2013 by Rickey Palomares MD at [facility] N/A: Neck Medtronic Spine/Ortho 09/15/2014 [id number]# / / [id number] Screw Arch Crtx 2.0x[address] Tit[address] - [id number] Implanted:Qty: 1 on 11/01/2013 by Rickey Palomares MD at [facility] N/A: Neck J And J Depuy Spine 401.354.99# / / Screw Cortex 2.0x6mm Self Tpng - [id number] Implanted:Qty: 16 on 11/01/2013 by Rickey Palomares MD at [facility] N/A: Neck J And J Depuy Spine 401.356.99# / / Screw Arch Crtx 2.0x[address] - [id number] Implanted:Qty: 2 on 11/01/2013 by Rickey Palomares MD at [facility] N/A: Neck J And J [employer]uy Spine 401.358.99# / / Screw Arch Er 2.4x6 Titnm - [id number] Implanted:Qty: 1 on 11/01/2013 at [facility] N/A: Neck J And J Depuy Spine 401.386.99# / / Plate 443.164 - [id number] Implanted:Qty: 1 on 11/01/2013 by Rickey Palomares MD at [facility] N/A: Neck J And J Depuy CMF 443.164 # / / Plate Arch Sgl Bend 6mm - [id number] Implanted:Qty: 1 on 11/01/2013 by Rickey Palomares MD at [facility] N/A: Neck J And J Depuy Spine 443.166# / / Plate Arch Sgl Bend 8mm - [id number] Implanted:Qty: 1 on 11/01/2013 by Rickey Palomares MD at [facility] N/A: Neck J And J Depuy Spine 443.168# / / Plate 443.176 - [id number] Implanted:Qty: 1 on 11/01/2013 by Rickey Palomares MD at [facility] N/A: Neck J And J Depuy CMF 443.176 # / / Plate Arch Dbl Bend 8mm - [id number] Implanted:Qty: 1 on 11/01/2013 by Rickey Palomares MD at [facility] N/A: Neck J And J Depuy Spine 443.178# / / Bone 4mm Mtf Spacer Angl Arch-Odl - [id number] Implanted:Qty: 1 on 11/01/2013 at [facility] N/A: Neck Musculoskeletal Transplant 10/14/2014 65547# / [id number] / Bone 6mm Mtf Spacer Parallel Arch-Odl - [id number] Implanted:Qty: 1 on 11/01/2013 by Yajaira Wallace CRNA at [facility] N/A: Neck Musculoskeletal Transplant 04/11/2016 84797# / [id number] / Bone 6mm Mtf Spacer Parallel Arch-Odl - [id number] Implanted:Qty: 1 on 11/01/2013 by Rickey Palomares MD at [facility] N/A: Neck Musculoskeletal Transplant 04/11/2016 46818# / / [id number] Bone 4mm Mtf Spacer Angl Arch-Odl - [id number] Implanted:Qty: 1 on 11/01/2013 by Rickey Palomares MD at [facility] N/A: Neck Musculoskeletal Transplant 04/10/2016 90241# / / [id number] 100 Bone 6mm Mtf Spacer Parallel Arch-Odl - [id number] Implanted:Qty: 1 on 11/01/2013 by Rickey Palomares MD at [facility] N/A: Neck Musculoskeletal Transplant 04/11/2016 46930# / / [id number] - [id number] Implanted:Qty: 1 on 11/01/2013 by Rickey Palomares MD at [facility] N/A: Neck BIOMET [id number] / / Description:Screw CRTX FT 4. 5x16mm [id number] - [id number] Implanted:Qty: 1 on 11/01/2013 by Rickey Palomares MD at [facility] N/A: Neck BIOMET [id number] / / Description:Screw CRTX FT 4. 5x18mm Screw Arch Crtx 2.0x4 Titnm Sd - [id number] Implanted:Qty: 4 on 11/01/2013 by Rickey Palomares MD at [facility] N/A: Neck J And J Depuy Spine 401.134.99# / / Cmnt Bone 40g Simplex P Non Atb Mv - [id number] Implanted:Qty: 2 on 04/19/2014 at [facility] Right: Knee [employer] [facility] 6191-1-010# / / [id number] Patella 38mm Aaliyah Ii Resurf - [id number] Implanted:Qty: 1 on 04/19/2014 at [facility] Right: Knee [employer] [id number]# / / [id number] Insert Knee Sz7-9 9mm Legion Cruc Ret High Flex Xlpe - [id number] Implanted:Qty: 1 on 04/19/2014 at [facility] Right: Knee [employer] [id number]# / / [id number] Baseplate Tib Rt Sz7 Aaliyah Ii Titnm Non Pors - [id number] Implanted:Qty: 1 on 04/19/2014 at [facility] Right: Knee [employer] [id number]# / / [id number] Fem Rt Sz8 Legion Cruc Ret Co Cr Non Pors - [id number] Implanted:Qty: 1 on 04/19/2014 at [facility] Right: Knee [employer] [id number]# / / [id number] Cmnt Bone Simplex Atb Tobramycin - [id number] Implanted:Qty: 1 on 08/19/2015 by Thomas Guo MD at [facility] Left: Knee [employer] 10/13/2016 6197-9-001# / / [id number] Cmnt Bone Simplex Atb Tobramycin - [id number] Implanted:Qty: 1 on 08/19/2015 by Thomas Guo MD at [facility] Left: Knee [employer] [facility] 10/13/2016 6197-9-001# / / [id number] Patella 38mm Aaliyah Ii Resurf - [id number] Implanted:Qty: 1 on 08/19/2015 by Thomas Guo MD at [facility] Left: Patella [employer] 03/01/2025 [id number]# / / [id number] Fem Lt Sz7 Legion Post Stbz Oxin - [id number] Implanted:Qty: 1 on 08/19/2015 by Thomas Guo MD at [facility] Left: Knee [employer] 05/18/2025 [id number]# / / [id number] Insert Knee Sz5-6 12mm Legion Xlpe - [id number] Implanted:Qty: 1 on 08/19/2015 by Thomas Guo MD at [facility] Left: Knee [employer] 06/15/2024 [id number]# / / [id number] Bone 1-4mm 60cc Medtronic Chips Canclls Frozen - [id number] Implanted:Qty: 1 on 12/01/2016 by Valdez Prieto MD at [facility] N/A: Lumbar Vertebrae Medtronic Spine/Ortho 07/27/2021 [id number]# / [id number] / [id number] Bone Matrix 6cc [place] Dbf Putty [facility] - [id number] Implanted:Qty: 1 on 12/01/2016 by Valdez Prieto MD at [facility] N/A: Lumbar Vertebrae Medtronic Spine/Ortho 08/20/2018 [id number]# / [id number] / Bone Matrix 6cc Marcial Dbf Putty Dbm - [id number] Implanted:Qty: 1 on 12/01/2016 by Valdez Prieto MD at [facility] N/A: Lumbar Vertebrae Medtronic Spine/Ortho 08/20/2018 [id number]# / [id number] / Spacer Lmbr 63y36zl Capstone Tlif Titnm Coating - [id number] Implanted:Qty: 1 on 12/01/2016 by Valdez Prieto MD at [facility] N/A: Lumbar Vertebrae Medtronic Spine/Ortho 05/02/2023 [id number]# / / [id number] Cnnctr Lmbr Sm Tsrh 3dx Offsettitnm - [id number] Implanted:Qty: 3 on 12/01/2016 by Valdez Prieto MD at [facility] N/A: Lumbar Vertebrae Medtronic Spine/Ortho [id number]# / / NO LOT OR EXPIRATION Description:No lot or expira tion/medtronic tray Screw Lmbr Post 6.5x50mm Tsrh 3dx Og Thin Va - [id number] Implanted:Qty: 4 on 12/01/2016 by Valdez Prieto MD at [facility] N/A: Lumbar Vertebrae Medtronic Spine/Ortho [id number]# / / NONE Description:No lot or expira tion/medtronic tray Set Screw Lmbr Tsrh 3dx - [id number] Implanted:Qty: 6 on 12/01/2016 by Valdez Prieto MD at [facility] N/A: Lumbar Vertebrae Medtronic Spine/Ortho [id number]# / / NONE Description:No lot or expira tion/medtronic tray Screw Lmbr Post 7.5x45mm Tsrh 3dx Og Thin Va - [id number] Implanted:Qty: 2 on 12/01/2016 by Valdez Prieto MD at [facility] N/A: Lumbar Vertebrae Medtronic Spine/Ortho [id number]# / / NONE Description:No lot or expira tion/medtronic tray Cnnfred Pascual Md [facility] 3dx Offsettitnm - [id number] Implanted:Qty: 2 on 12/01/2016 by Valdez Prieto MD at [facility] N/A: Lumbar Vertebrae Medtronic Spine/Ortho [id number]# / / Cnnctanny Pascual Lg [facility] 3dx Offsettitnm - [id number] Implanted:Qty: 1 on 12/01/2016 by Valdez Prieto MD at [facility] N/A: Lumbar Vertebrae Medtronic Spine/Ortho [id number]# / / Explanted Type Area Regional Forester Device Identifier Shelf Expiration Date Model / Serial / Lot Pin Knee 65mm Non-Rimmed St-St Strl - [id number] Explanted:Qty: 1 on 04/19/2014 at [facility] Right: Knee [employer] [id number]# / / [id number] Pin Knee 45mm Rimmed St-St Strl - [id number] Explanted:Qty: 1 on 04/19/2014 at [facility] Right: Knee [employer] [id number]# / / [id number] Advance Directives Documents on File Type Date Recorded Patient Expeller Operator Expl anation Healthcare Directive * Full Code (Latest Code Status on File) Date Activated Date Inactivated Comments 12/01/2016 4:06 PM 12/04/2016 6:23 PM * Full Code Date Activated Date Inactivated Comments 12/01/2016 8:03 AM 12/01/2016 3:58 PM Question Answer Comments Code Status Discussion: Not Discussed * Full Code Date Activated Date Inactivated Comments 11/30/2016 9:48 PM 12/01/2016 8:03 AM Question Answer Comments Code Status Discussion: Not Discussed * Full Code Date Activated Date Inactivated Comments 08/19/2015 12:45 PM 08/22/2015 5:24 PM * Full Code Date Activated Date Inactivated Comments 08/19/2015 9:02 AM 08/19/2015 12:45 PM Care Teams Bill Clerk Relationship Specialty Start Date End Date Darrion Ivan MD PCP - General Family Practice 10/26/13
--- OUTSIDE RECORDS SUMMARY | 2023-12-06 14:23 | XMS_ITS | Continuity of Care Document ---
Author Name Unknown Organization [facility] Address [address] [place] [address] Phone Care Team Providers Care Assistant Vice President Name Role Phone García KVNGChanell Unavailable Unavailable [...] Procedure Date Office/Outpatient Visit,Est, Mod 2022 Office/Outpatient Visit,[facility], [facility] 2022 X-Ray Exam Of Neck Spine, 4+ [...] on Encounter [facility], [address], [place], [place], [id number], [place] tel:[phone] [facility] No Information Sep- 3 [facility]. [facility], [address] [place] [address] [address], [place], [address], [place]. tel:[phone] Referring Provider: Vazquez Ferris, [facility] [address] [place], [address]. tel:[phone] Office/Outpat ient Visit,Est, Mod [facility], [address], [place], [place], [id number], [place] tel:[phone] [facility] Arthrodesis statusSpinal stenosis, thoracic regionMyelopathy Sep-0 3 [facility]. [facility], [address], [place], [address], [place]. tel:[phone] Referring Provider: Vazquez Ferirs, [facility] [address], [place], [address]. tel:[phone] Office/Outpat ient Visit,New, Mod [facility], [address], [place], [id number], [place] tel:[phone] [facility] Other spondylosis, cervical regionOther spondylosis, lumbar region 3 Garcíadanika Lua. [facility] [place], [address], [place], [address], [place]. [phone] Referring Provider: Vazquez Ferris, [facility] [address], [place], [address]. tel:[phone] Office/Outpat ient Visit,Est, Mod [facility], [address], [place], [place], [id number], [place] tel:[phone] [facility] Spinal stenosis, lumbar region NOS 9 [facility]. [facility], [address] [place] [address] [address], [facility] [place], [id number] , [place]. [phone] Referring Provider: Vazquez Ferris, [facility] [address], [place], [address]. tel:[phone] Office/Outpat ient Visit,Est, Mod [facility], [address], [place], [place], [id number], [place] tel:[phone] [facility] Spinal stenosis, lumbar region NOS 8 Conner Kellogg. [facility], [address], [facility] [place], [address] , [place]. [phone] Referring Provider: Vazquez Ferris, [facility] [address], [place], [address]. tel:[phone] Office/Outpat ient Visit,Est, Mod [facility], [address], [place], [address], [place] tel:[phone] [facility] Spinal stenosis, lumbar region NOS 2 7 Conner Kellogg. [facility], [address], [place], [id number] , [place]. tel:[phone] Referring Provider: Vazquez Ferris, [facility] [address], [place], [address]. tel:[phone] [facility], [address], [place], [id number], [place] tel:[phone] [facility] Spinal stenosis, lumbar region Conner Kellogg. [facility] [place], [address] [place] [address] [address], [place], [address] , [place]. [phone] Referring Provider: Vazquez Ferris, [facility] [address], [place], [address]. tel:[phone] [facility], [address], [place], [id number], [place] tel:[phone] [facility] Encounter for other specified surgical aftercare Aric Pitt. [facility] [place], [facility] [address] [place] [address] [address], [place], [place], [id number] , [place]. [phone] Referring Provider: Vazquez Ferris, [facility] [address], [place], [address]. tel:[phone] [facility], [address], [place], [id number], [place] tel:[phone] [facility] No Information Conner Kellogg. [facility] [place], [address] [place] [address] [address], [place], [address] , [place]. tel:[phone] Referring Provider: Vazquez Ferris, [facility] [address], [place], [address]. tel:[phone] Office/Outpat ient Visit,New, Mod [facility], [address], [place], [address], [place] tel:[phone] [facility] - [facility] Spinal stenosis, lumbar region 7 Conner Kellogg. [facility], [address], [place], [place], [id number] , [place]. tel:[phone] Referring Provider: Vazquez Ferris, [facility] [address] , [place], [address]. tel:[phone] Family History Family Member Type Diagnosis Age [...]
== END 2023-12-06 14:19 | disposition home or self-care (01) ==
PROVIDERS: PCP Internal Medicine; Visit Provider Internal Medicine
DX: E11.9 Type 2 diabetes mellitus without complications (principal)
CPT/HCPCS: 80053; 80061; 82043; 82570

== ENCOUNTER 2024-04-20 17:32 | Outpatient (CLI) | payer MEDICARE, BC, SELFPAY | END 2024-04-20 17:33 | disposition home or self-care (01) | LOC: AMB 05-04 00:57 | PROVIDERS: PCP Internal Medicine; Visit Provider Emergency Medicine | DX: S39.92XA Unspecified injury of lower back, initial encounter (principal); W18.30XA Fall on same level, unspecified, initial encounter; Y92.038 Other place in apartment as the place of occurrence of the external cause | CPT/HCPCS: A0425; A0427 ==

== ENCOUNTER 2024-04-20 18:12 | Emergency (ER) | payer MEDICARE, BC, SELFPAY ==
[2024-04-20] VITALS (10 sets, daily range): BP systolic 123–150; BP diastolic 73–81; PULSE 60–70; RESP 16; TEMP 36.2; O2SAT 95–96; BMI 22.4
--- NOTE | 2024-04-20 18:32 | ED_ITS ---
HPI - General Adult General Date Seen: 04/20/24 Chief complaint: Fall/Minor Trauma Stated complaint: Fall Time Seen by Provider: 04/20/24 18:32 History of Present Illness HPI narrative: 83-year-old gentleman with a history of hearing loss, hypertension, type 2 kaila betes, BPH, gout, anxiety, and myasthenia gravis (on pyridostigmine 60 mg 4 times daily for his mg and generally doing well, but does have poor balance, previous cervical 3-6 fusion. He lives in independent living at the [facility]. He recalls that he fell about a month ago when he was walking down the hallway and slid down the wall and landed on his right buttock and had some pain in his right posterior hip. He was a little bear weight at that time and never came to the doctor to get checked out or get x-rays. He fell again today. He was at his desk and he stood up and lost his balance. Because of his myasthenia he does have to use a walker and hold onto things for balance. Today he was holding a piece of paper and not holding on any object to keep his balance and then fell backwards and landed directly on his buttocks, especially on his right buttock. He is having pain in the right posterior hip again. He did require lift assist to get off the floor but was able to ambulate several steps to get on to the EMS gurney come here. He is having pain in his right posterior hip. No other pain. No back pain. No left hip pain. He did not hit his head. No headache. No confusion. No nausea or vomiting. No neck pain. Related Data Home Medications ?Medication ?Instructions ?Recorded ?Confirmed pyridostigmine bromide 60 mg tablet 60 mg PO TID 03/31/22 04/20/24 ergocalciferol (vitamin D2) 10 mcg 2,000 unit PO DAILY 04/06/22 04/20/24 (400 unit) tablet multivitamin 1 tab PO QDAY 04/06/22 04/20/24 sertraline 50 mg tablet 50 mg PO QDAY 12/06/23 04/20/24 gabapentin 300 mg capsule 300 mg PO TID 04/20/24 04/20/24 Previous Rx's ?Medication ?Instructions ?Recorded metoclopramide HCl 5 mg tablet 5 mg PO TID PRN nausea and 03/31/22 (Reglan) vomiting #7 tabs mometasone 50 mcg/actuation nasal 2 spray intranasal QDAY #17 grams 08/30/23 spray amlodipine 2.5 mg tablet 2.5 mg PO QDAY #90 tabs 12/28/23 finasteride 5 mg tablet 5 mg PO QDAY #90 tabs 01/25/24 pioglitazone 15 mg tablet 15 mg PO QDAY #90 tabs 01/25/24 allopurinol 100 mg tablet See Rx Instructions .Route 02/23/24 .COMPLEX #90 tabs Allergies Allergy/AdvReac Type Severity Reaction Status Date / Time No Known Drug Allergies Allergy Verified 04/20/24 18:20 [facility] Medical History (Updated 04/20/24 @ 20:20 by Tunde Cast MD) History of nephrolithiasis ?Z87.442 - Personal history of urinary calculi (ICD-10) Surgical History History of open reduction and internal fixation (ORIF) procedure ?Z98.890 - Other specified postprocedural states (ICD-10) History of total bilateral knee replacement ?Z96.653 - Presence of artificial knee joint, bilateral (ICD-10) History of cervical spinal surgery ?Z98.890 - Other specified postprocedural states (ICD-10) History of lumbar fusion ?Z98.1 - Arthrodesis status (ICD-10) Status post tendon repair ?Z98.890 - Other specified postprocedural states (ICD-10) History of cholecystectomy ?Z90.49 - Acquired absence of other specified parts of digestive tract (ICD- 10) History of transurethral resection of prostate (2004) ?Z98.890 - Other specified postprocedural states (ICD-10) ?Z90.79 - Acquired absence of other genital organ(s) (ICD-10) Family History Father Prostate cancer Diabetes Paternal Grandfather Prostate cancer Social History Smoking Status: Never smoker Do you use any of these nicotine containing products: None How often do you have a drink containing alcohol: never AUDIT-C Alcohol total score: 0 Non-prescribed substance use: denies use Little interest or pleasure in doing things: more than half the days Feeling down, depressed, or hopeless: more than half the days Exam Narrative: Exam Narrative: Constitutional: Appears well-developed and well-nourished. Alert. Conversant but pleasantly hard of hearing. Non toxic. HENT: Head: Atraumatic. Nose: Nose normal. Mouth/Throat: Oral mucosa is clear and moist. no trismus. Pharynx normal. Tonsils symmetric. No tonsillar enlargement, erythema, or exudate. Eyes: Conjunctivae normal. EOM normal. Pupils equal, round, and reactive to light. No scleral icterus. Neck: Normal range of motion. Neck supple. No tracheal deviation present. Previous cervical surgery with well-healed incision. No posterior midline tenderness. Cardiovascular: Normal rate, regular rhythm. No gallop. No friction rub. No murmur heard. Symmetric radial artery pulses Pulmonary/Chest: Effort normal. No stridor. No respiratory distress. No wheezes. No rales. No rhonchi . No tenderness. Abdominal: Soft. Bowel sounds normal. No distension. No mass. No tenderness. No rebound. No guarding. Musculoskeletal: No T or L-spine tenderness. Pelvis is stable. RUE: Normal range of motion. No tenderness. No deformity LUE: Normal range of motion. No tenderness. No deformity RLE: He does have tenderness on the posterior hip just below the ischial tuberosity at the proximal end of the hamstring. No bruising. No ecchymosis. No crepitus. No step-off. He has ability to actively flex his hip up to 90?. Limited internal and external rotation due to hip stiffness but not pain. Femoral shaft, quad, distal hamstring nontender. Knee with healed knee replacement incision. No tenderness. No deformity. Lower extremity normal. Nontender. Ankle and foot normal and nontender. LLE: Normal range of motion. No edema. No tenderness. No deformity Neurological: Alert and oriented to person, place, and time. Normal strength. CN II-VII intact. No sensory deficit. GCS eye subscore is 4. GCS verbal subscore is 5. GCS motor subscore is 6. Normal coordination Skin: Skin is warm and dry. No rash noted. No pallor. Normal capillary refill. Psychiatric: Normal mood. Normal affect. Const: Vital Signs, click to edit/add: Vital Signs - 24 hr 04/20/24 18:20 04/20/24 18:38 04/20/24 18:45 Temperature 97.2 F L Pulse Rate 67 65 Pulse Rate [Pulse Oximeter] 60 Respiratory Rate 16 Blood Pressure Blood Pressure [Ri ght Upper Arm] 123/80 Pulse Oximetry 96 95 95 Oxygen Delivery Me thod Room Air 04/20/24 19:01 04/20/24 19:02 04/20/24 19:15 Temperature Pulse Rate 63 65 70 Pulse Rate [Pulse Oximeter] Respiratory Rate Blood Pressure 128/73 Blood Pressure [Ri ght Upper Arm] Pulse Oximetry 95 95 95 Oxygen Delivery Me thod 04/20/24 19:42 04/20/24 19:45 04/20/24 19:50 Temperature Pulse Rate 69 69 66 Pulse Rate [Pulse Oximeter] Respiratory Rate Blood Pressure 150/81 H Blood Pressure [Ri ght Upper Arm] Pulse Oximetry 96 96 95 Oxygen Delivery Me thod 04/20/24 20:02 Temperature Pulse Rate Pulse Rate [Pulse Oximeter] Respiratory Rate Blood Pressure 130/76 Blood Pressure [Ri ght Upper Arm] Pulse Oximetry Oxygen Delivery Me thod Course Vital Signs Vital signs: Initial Vital Signs Temperature 97.2 F L 04/20/24 18:20 Temperature Source Temporal Artery Scan 04/20/24 18:20 Pulse Rate 60 04/20/24 18:20 Respiratory Rate 16 04/20/24 18:20 Blood Pressure 123/80 04/20/24 18:20 Blood Pressure Mean 94 04/20/24 18:20 Blood Pressure Position Semi-Fowlers 04/20/24 18:20 Pulse Oximetry 96 04/20/24 18:20 Oxygen Delivery Method Room Air 04/20/24 18:20 Vital Signs Temperature 97.2 F L 04/20/24 18:20 Pulse Rate 60 04/20/24 18:20 Respiratory Rate 16 04/20/24 18:20 Blood Pressure 123/80 04/20/24 18:20 Pulse Oximetry 96 04/20/24 18:20 Oxygen Delivery Method Room Air 04/20/24 18:20 Temperature 97.2 F L 04/20/24 18:20 Pulse Rate 66 04/20/24 19:50 Respiratory Rate 16 09/05/24 18:20 Blood Pressure 130/76 09/05/24 20:02 Pulse Oximetry 95 04/20/24 19:50 Oxygen Delivery Method Room Air 04/20/24 18:20 Medical Decision Making MDM Narrative Medical decision making narrative: Very pleasant 83-year-old gentleman presenting to the ER today with a mechanical ground level fall induced by his poor balance. He landed directly on his right buttock. He is having pain in his right posterior hip. No other injuries from the fall. In particular he did not hit his head or injure his neck. He has no back pain in the thoracic or lumbar spine. No injury more distally in healing this femur, knee, lower leg, ankle, or foot. x-rays of the patient's hip and pelvis CT are obtained and are fortunately negative for fracture. He has a reassuring clinical exam, neurovascularly intact in the right leg. He is able to bear weight. He is comfortable discharging home with his cousin, Shannon. Questions answered. They are eager for discharge. Imaging Data XR right hip/pelvis: Attestation: I have reviewed the pertinent imaging results. My impression: No visible fracture Radiologist's impression: IMPRESSION: No acute fractures or dislocation. Discharge Plan Discharge Clinical Impression: Contusion of hip, right Patient Disposition: Home, Self-Care Condition: Stable Instructions: Hip Contusion (ED) Additional Instructions: As we discussed, your x-rays look good tonight. No sign of any broken bone. We suspect your pain is probably due to a deep bruise or mild sprain of her hip. It is okay to walk on her hip and bear weight. You can treat pain with Tylenol or ibuprofen if needed. Please use your usual items to help with her balance to avoid further falls. If you have any worsening pain swelling could obesity link comfortable walking, or any other problems, please come back to the ER right away to be rechecked. Prescriptions: No Action multivitamin Tablet 1 tab PO QDAY ergocalciferol (vitamin D2) 10 mcg (400 unit) tablet 2,000 unit PO DAILY mometasone 50 mcg/actuation spray,non-aerosol 2 spray intranasal QDAY Qty: 17 3RF Rx Instructions: administer into each nostril sertraline 50 mg tablet 50 mg PO QDAY pyridostigmine bromide 60 mg tablet 60 mg PO TID metoclopramide HCl [Reglan] 5 mg tablet 5 mg PO TID PRN (Reason: nausea and vomiting) Qty: 7 0RF gabapentin 300 mg capsule 300 mg PO TID amlodipine 2.5 mg tablet 2.5 mg PO QDAY Qty: 90 3RF pioglitazone 15 mg tablet 15 mg PO QDAY Qty: 90 0RF finasteride 5 mg tablet 5 mg PO QDAY Qty: 90 3RF allopurinol 100 mg tablet See Rx Instructions .ROUTE .COMPLEX Qty: 90 0RF Dose Instruction: TAKE ONE TABLET BY MOUTH EVERY DAY Rx Instructions: TAKE ONE TABLET BY MOUTH EVERY DAY Follow Up/Referrals: Fatou Sherwood MD [Primary Care Provider] - Stand Alone Forms: [employer] Info Instructions
--- NOTE | 2024-04-20 18:46 | CRLHL7_ITS ---
For Patients: As a result of the Cures Act, medical imaging exams and procedure reports are released immediately into your electronic medical record. You may view this report before your referring provider. If you have questions, please contact your health care provider. INDICATION: Trauma. TECHNIQUE: Right hip and pelvis radiographs, 2 views. COMPARISON: None. FINDINGS: Diffuse osteopenia. No acute fractures or dislocation. Mild osteoarthritic degeneration of the right hip. No diastasis of the pubic symphysis. The sacroiliac joints appear intact. Postsurgical changes from a prior ORIF of the left proximal femur and posterior instrumented fusion of the lower lumbar spine. IMPRESSION: No acute fractures or dislocation. Dictated by Sriram Herrera MD @ 04/20/2024 8:05:51 PM (Electronically Signed)
--- OUTSIDE RECORDS SUMMARY | 2024-04-20 19:03 | XMS_ITS | Clinical Summary ---
Author Organization [place] Address [address] [place] [address] Care Team Providers Care Renewal Specialist Name Role Phone Tunde Herbert MD Unavailable [phone] Radha Main MD Unavailable Manolo Drake MD Unavailable [phone] Tunde Herbert MD Unavailable [phone] Fatou Sherwood MD Primary Care Provider Allergies No known active allergies Medications Medication [...] 4 hours 540 tablet 3 11/10/2022 Active pyRIDostigmine (MESTINON) 60 MG tabletIndications:Myas thenia gravis (H) Take 1 tablet (60 mg) by mouth 4 times daily 360 tablet 3 01/20/2024 Active Active Problems Problem Noted Date Diagnosed Date Bilateral nephrolithiasis 04/28/2022 Encounters Date Type Department Care Team Description 01/20/2024 10:30 AM CDT Office Visit [facility] [address] [phone] Nba Santiago MD, Tunde Trejo MD Alternating esotropia (Primary Dx); Hypertropia of left eye; Myasthenia gravis (H) 01/20/2024 Travel 01/20/2024 Orders Only [facility] [address] [phone] Tunde Herbert MD Subjective visual disturbance (Primary Dx) from Last 3 Months Social History Tobacco Use Types Packs/Day Years Used Date Smoking Tobacco: Former Smokeless Tobacco: Never Alcohol Use Standard Drinks/Week Comments Not Currently 0 (1 standard drink = 0.6 oz pur e alcohol) PHQ-2 Answer Date Recorded PHQ-2 Score 0 01/20/2024 Adolescent Education Answer Date Record ed Getting [...] REVIEW OF HM ORDERS 1942 RSV VACCINE (1 - 1-dose 60+ series) 2002 ZOSTER IMMUNIZATION (2 of 3) 04/11/2007 02/14/2007 FALL RISK ASSESSMENT 11/26/2007 MEDICARE ANNUAL WELLNESS VISIT 11/26/2007 DTAP/TDAP/TD IMMUNIZATION (2 - Td or Tdap) 08/24/2022 08/24/2012, 02/14/2007 COVID-19 Vaccine ( season) 2024 12/06/2023, 06/24/2022, 09/30/2020, Additional history exists INFLUENZA VACCINE (#1) 2024 3, 06/04/2022, 06/02/2021, Additional history exists Pneumococcal Vaccine: 65+ Years Completed 04/03/2015, 03/14/2008 PHQ-2 (once per calendar year) Completed 01/20/2024, 06/19/2022, 01/21/2021 HPV IMMUNIZATION Aged Out No longer e ligible based on patient's age to complete this topic MENINGITIS IMMUNIZATION Aged Out No l onger eligible based on patient's age to complete this topic RSV MONOCLONAL ANTIBODY Aged Out No l onger eligible based on patient's age to complete this topic Medical Devices Implanted Type Area Assistant Teaching Professor Device Identifier Shelf Expiration Date Model / Serial / Lot Stent Ureteral Polaris Ultra [id number] - [id number] Implanted:Qty: 1 on 04/28/2022 by Manolo Drake MD at [facility] Stent Right: Urethra [employer] 12/05/2024 [id number] / / [id number] Stent Ureteral Polaris Ultra [id number] - [id number] Implanted:Qty: 1 on 04/28/2022 by Manolo Drake MD at [facility] Stent Left: Urethra [employer] 12/19/2024 [id number] / / [id number] Procedures Procedure Name Priority Date/Time Associated Diagnosis Comments SENSORIMOTOR Routine 01/20/2024 11:18 AM CDT Alternating esotropia Hypertropia of left eye from Last 3 Months Results * Sensorimotor (01/20/2024 11:18 AM CDT) Narrative Tunde Herbert MD - 01/20/2024 11:18 AM CDT Performed by: keke . Patient cooperation: Reliable . Reliability of the test: Good . Test Findings: Strabismus . Interpretation: Esotropia, Hypertropia, Noncomitant strabismus . Plan: Will monitor and consider eye muscle surgery . Interval: Same . Kristyn ELLIS OPHTHALMOLOGY from Last 3 Months Care Teams Renewal Specialist Relationship Specialty Start Date End Date Fatou Sherwood MD [facility] [address] [place] [address] PCP - General 01/16/24 Tunde Herbert MD Ophthalmology 06/28/18 Radha Main MD [facility] [address] [place] [address] 06/28/18 Manolo Drake MD [address] [place] [address] [id number] Urology 04/17/22 Tunde Herbert MD [address] [place] [address] Assigned Surgical Provider 11/21/22
--- OUTSIDE RECORDS SUMMARY | 2024-04-20 19:03 | XMS_ITS | Clinical Summary ---
Author Organization [facility] Address [address] [place] [address] Care Team Providers Care Health Information Tech Name Role Phone Darrion Ivan MD Primary Care Provider [phone] [facility]- Unava ilable Tripp Cotton MD Unavailable [phone] Allergies No known active allergies Medications [...] prostatic hyperplasia) 04/03/2014 Calculus of kidney 04/03/2014 Overview (03/29/2023): Last episode of pain was years ago Gout 04/03/2014 Overview (03/29/2023): Pt takes allopurinol daily Scoliosis 04/03/2014 Osteoarthritis of both knees 12/18/2013 Overview (03/29/2023): Pt scheduled for right total knee arthroplasty on 04/19/[address] Smith. Spinal stenosis in cervical region 11/04/2013 Overview (03/29/2023): C3-T1 fusion in 11/01/2013- [facility] Social History Tobacco Use Types Packs/Day Years [...] Tetanus Booster 08/24/2022 08/24/2012, 007 COVID-19 Vaccine (4 - 2022-2 4 season) 2024 06/24/2022, 09/30/2020, 09/02/2020 Influenza Vaccine (#1) 2024 3, 06/04/2022, 06/02/2021, Additional history exists Creatinine 07/26/2024 07/26/2023 Pneumococcal 65+ Completed 04/03/2015, 03/14/2008 Procedures Procedure Name Priority Date/Time Associated Diagnosis Comments COMPREHENSIVE METABOLIC PANEL 14 ([facility]) Routine 07/26/2023 1:06 PM AGENT BROKER Myasthenia gravis (HCC) from Last 3 Months or Most Recently Relevant to Health Maintenance Results * (ABNORMAL) COMPREHENSIVE METABOLIC PANEL 14 ([facility]) (07/26/2023 1:06 PM AGENT BROKER) Pathologist [facility] Glucose ([facility]) 79 70 - 99 mg/dL [...] IU/L [facility] 2 Blood 07/26/2023 1:06 PM AGENT BROKER 07/26/2023 11:00 PM AGENT BROKER Narrative [facility] 2 - 08/06/2023 9:09 AM AGENT BROKER Performed at: ??02 - [facility] ??[id number] Paste Mixing Supervisor: Timmy Wills MD, Phone: ??[phone] Tripp Cotton MD [facility] ORDERABLES [facility] 2 from Last 3 Months or Most Recently Relevant to Health Maintenance Care Teams Health Information Tech Relationship Specialty [place] [address] [place] [address] PCP - General 01/22/23 [facility]- [address] [place] [address] PCP - Primary Care Clinic 01/22/23 Tripp Cotton MD [address] [facility], [address] [place] [address] Neurology 03/29/23
--- OUTSIDE RECORDS SUMMARY | 2024-04-20 19:03 | XMS_ITS | Encounter Summary ---
Author Organization [place] Address [address] [place] [address] Care Team Providers Care Rn Emergency Room Name Role Phone Tunde Herbert MD Unavailable [phone] Radha Main MD Unavailable [phone] Manolo Drake MD Unavailable [phone] Tunde Herbert MD Unavailable [phone] Fatou Sherwood MD Primary Care Provider [phone] Encounter Details Date Type Department Care Team (Latest Contact Info) Description 01/16/2024 Travel Social History Tobacco Use Types Packs/Day Years [...] on filedocumented in this encounter Care Teams Rn Emergency Room Relationship Specialty Start Date End Date Fatou Sherwood MD [facility] [address] [place] [address] PCP - General 01/16/24 Tunde Herbert MD Ophthalmology 06/28/18 Radha Main MD [facility] [address] [place] [address] 06/28/18 Manolo Drake MD [address] [place] [address] [id number] Urology 04/17/22 Tunde Herbert MD [address] [place] [address] [id number] Assigned Surgical Provider 11/21/22 documented as of this encounter
--- OUTSIDE RECORDS SUMMARY | 2024-04-20 19:03 | XMS_ITS | Encounter Summary ---
Author Organization [place] Address [address] [place] [address] Care Team Providers Care Lunch Truck Driver Name Role Phone Vazquez Ivan MD Primary Care Provider [phone] Tunde Herbert MD Unavailable [phone] Radha Main MD Unavailable Tunde Herbert MD Unavailable [phone] Tunde Herbert MD Unavailable [phone] Manolo Drake MD Unavailable [phone] Manolo Drake MD Unavailable [phone] Tunde Herbert MD Unavailable [phone] Fatou Sherwood MD Primary Care Provider [phone] Encounter Details Date Type Department Care Team (Late st Contact Info) Description 10/14/2021 [facility] [address] [address] Brock Roe Social History Tobacco Use [...] on filedocumented in this encounter Care Teams Lunch Truck Driver Relationship Specialty Start Date End Date Vazquez Ivan MD PCP - General Family Practice 06/28/18 01/15/24 Fatou Sherwood MD [facility] & [address] [address] PCP - General 01/16/24 Tunde Herbert MD Ophthalmology 06/28/18 Radha Main MD [facility] [address] [place] [address] 06/28/18 Tunde Herbert MD [address] [place] [address] Assigned Surgical Provider 01/26/21 02/06/22 Tunde Herbert MD [address] [place] [address] Assigned Surgical Provider 02/07/22 05/01/22 Manolo Drake MD [address] [place] [address] [id number] Urology 04/17/22 Manolo Drake MD [address] [place] [address] Assigned Surgical Provider 05/02/22 11/20/22 Tunde Herbert MD [address] [place] [address] Assigned Surgical Provider 11/21/22 documented as of this encounter
--- OUTSIDE RECORDS SUMMARY | 2024-04-20 19:03 | XMS_ITS | Encounter Summary ---
Author Organization [facility] Address [address] [place] [address] Care Team Providers Care Software Team Leader Name Role Phone Tunde Herbert MD Unavailable [phone] Radha Main MD Unavailable Manolo Drake MD Unavailable [phone] Tunde Herbert MD Unavailable [phone] Fatou Sherwood MD Primary Care Provider Reason for Visit * Reason Comments Annual Eye Exam Encounter Details Date Type Department Care Team (Late st Contact Info) Description 01/20/2024 10:30 AM CDT Office Visit [facility] [place] [id number] [facility] [facility] [place] [facility] [address] [place] [address] Nba Santiago MD, [place] [address] [address] [place] [address] Tunde Herbert MD [address] [place] [address] Alternating esotropia (Primary Dx); Hypertropia of left eye; Myasthenia gravis (H) Social History Tobacco Use Types Packs/Day Years [...] on file documented as of this encounter Progress Notes * Tunde Herbert MD - 01/20/2024 10:30 AM CDT Ross Dodson is a 81 year old male with the following diagnoses: Myasthenia gravis Alternating esotropia Hypertropia of left eye Mr. Dodson has seropositive myasthenia gravis controlled with mestinon. He was last seen on 11/10/22, and at that time he felt that his diplopia was worsening slightly, occurring consistently about 4 hours after his mestinon dose. We increased his mestinon to 60 mg every 4 hours to see if this couldimprove symptoms. Today, Mr. Dodson reports that his double vision has improved. He no longer gets double vision 4 hours after taking mestinon. Occasionally, he gets double vision that is resolved by refixating on whatever he is looking at. He denies ptosis or pain in the eyes. No new difficulty speaking or swallowing, no new weakness otherwise beyond baseline. Corrected distance visual acuity was 20/40 in the right eye and 20/25 in the left eye. Intraocular pressure was 12 in the right eye and 14 in the left eye using ICare. Pupils isocoric. Anterior segment exam unremarkable except for 1+ nuclear sclerosis each eye. Strabismus exam notable for hypertropia of left eye and fatigability on upward gaze. It is my impression that patient has chronic myasthenia previously well- controlled on Mestinon. Since increasing dose to 60 mg every 4 hours (in October 2022), symptoms have improved. We discussed changing his mestinon to 180 ER. He checked his pharmacy and will stay with his current regimen. Follow up in 1 year or sooner as needed for worsening symptoms. Rakel Severino, MS4 Attending Physician Attestation: Complete documentation of historical and exam elements from today's encounter can be found in the full encounter summary report (not reduplicated in this progress note). I personally obtained the chief complaint(s) and history of present illness. I confirmed and edited as necessary the review of systems, past medical/surgical history, family history, social history, and examination findings as documented by others; and I examined the patient myself. I personallyreviewed the relevant tests, images, and reports as documented above. I formulated and edited as necessary the assessment and plan and discussed the findings and management plan with the patient and family. I was present with the medical student who participated in the service and in the documentation of this note. - Tunde Herbert MD documented in this encounter Nursing Notes * Kristyn Leger CO - 01/20/2024 10:30 AM CDT Chief Complaint(s) and History of Present Illness(es) Annual Eye Exam In both eyes. Associated symptoms include foreign body sensation. Negative for eye pain and headache. Pain was noted as 0/10. Comments Patient was last seen by Dr. Herbert on 11/10/22 for MG, here for an annual eye exam. David reports he istaking the Mestinon 60 mg mainly three times a day, thinks he does not need the fourth dose because he's sleeping anyway. He reports vision was better when he was taking it four time daily. He reports intermittent double vision. He reports hard to see in up-gaze when looking up at the cupboards. is not present today but cousin Shannon is present with today. He reports foreign body sensation in the left eye. CALEB Olivera 01/20/2024 10:27 AM documented in this encounter Plan of Treatment Not on file documented as of this encounter Procedures Procedure Name Priority Date/Time Associated Diagnosis Comments SENSORIMOTOR Routine 01/20/2024 11:18 AM CDT Alternating esotropia Hypertropia of left eye documented in this encounter Results * Sensorimotor (01/20/2024 11:18 AM CDT) Narrative Tunde Herbert MD - 01/20/2024 11:18 AM CDT Performed by: keke . Patient cooperation: Reliable . Reliability of the test: Good . Test Findings: Strabismus . Interpretation: Esotropia, Hypertropia, Noncomitant strabismus . Plan: Will monitor and consider eye muscle surgery . Interval: Same . Kristyn ELLIS OPHTHALMOLOGY documented in this encounter Visit Diagnoses Diagnosis Alternating esotropia- Primary Hypertropia of left eye Myasthenia gravis (H) Myasthenia gravis without exacerbation documented in this encounter Care Teams Software Team Leader Relationship Specialty Start Date End Date Fatou Sherwood MD [facility] [address] [place] [address] PCP - General 01/16/24 Tunde Herbert MD Ophthalmology 06/28/18 Radha Main MD [facility] [address] [place] [address] 06/28/18 Manolo Drake MD [address] [place] [address] Urology 04/17/22 Tunde Herbert MD [address] [place] [address] Assigned Surgical Provider 11/21/22 documented as of this encounter
--- OUTSIDE RECORDS SUMMARY | 2024-04-20 19:03 | XMS_ITS | Referral Summary ---
Author Organization [facility] Address [address] [place] [address] Care Team Providers Care Escrow Representative Name Role Phone Darrion Ivan MD Primary Care Provider [phone] [facility]- Unava ilable Tripp Cotton MD Unavailable [phone] Allergies No known active allergies Medications [...] 11/04/2013 Overview (03/29/2023): C3-T1 fusion in 11/01/2013- [facility] Social History Tobacco Use Types Packs/Day Years Used Date Smoking Tobacco: Never Assessed Sex and Gender Information Value Date Recorded Sex Assigned at Not on file Gender Identity Not on file Sexual Orientation Not on file Plan of Treatment Not on file Procedures Procedure Name Priority Date/Time Associated Diagnosis Comments COMPREHENSIVE METABOLIC PANEL 14 ([facility]) Routine 07/26/2023 1:06 PM ONCOLOGY ADMIN Myasthenia gravis (HCC) from Last 3 Months or Most Recently Relevant to Health Maintenance Results * (ABNORMAL) COMPREHENSIVE METABOLIC PANEL 14 ([facility]) (07/26/2023 1:06 PM ONCOLOGY ADMIN) Glucose ([facility]) 79 70 - 99 mg/dL [...] IU/L [facility] 2 Blood 07/26/2023 1:06 PM ONCOLOGY ADMIN 07/26/2023 11:00 PM ONCOLOGY ADMIN Narrative [facility] 2 - 08/06/2023 9:09 AM ONCOLOGY ADMIN Performed at: ??02 - [facility] [address] ??[id number] Sales Analytics Manager: Timmy Wills MD, Phone: ??[phone] Tripp Cotton MD [facility] ORDERABLES [facility] 2 from Last 3 Months or Most Recently Relevant to Health Maintenance Care Teams Escrow Representative Relationship Specialty [place] [address] [place] [address] PCP - General 01/22/23 [facility] [address] [place] [address] PCP - Primary Care Clinic 01/22/23 Tripp Cotton MD [address] [facility], [address] [place] [address] Neurology 03/29/23
--- OUTSIDE RECORDS SUMMARY | 2024-04-20 19:03 | XMS_ITS | Encounter Summary ---
Author Organization [facility] Address [address] [place] [address]. [place] [address] Care Team Providers Care Architectural Manager Name Role Phone Tunde Herbert MD Unavailable [phone] Radha Main MD Unavailable Manolo Drake MD Unavailable [phone] Tunde Herbert MD Unavailable [phone] Fatou Sherwood MD Primary Care Provider Encounter Details Date Type Department Care Team (Late st Contact Info) Description 01/20/[address] [facility] [address] [facility] [address] [place] [phone] Tunde Herbert MD [address] [place] [address] Subjective visual disturbance (Primary Dx) Social History Tobacco Use Types Packs/Day Years [...] documented as of this encounter Visit Diagnoses Diagnosis Subjective visual disturbance- Primary Subjective visual disturbance, unspecified documented in this encounter Care Teams Architectural Manager Relationship Specialty Start Date End Date Fatou Sherwood MD [facility] [address] [place] [address] PCP - General 01/16/24 Tunde Herbert MD Ophthalmology 06/28/18 Radha Main MD [facility] [address] [place] [address] 06/28/18 Manolo Drake MD [address] [place] [address] Urology 04/17/22 Tunde Herbert MD [address] [place] [address] Assigned Surgical Provider 11/21/22 documented as of this encounter
--- OUTSIDE RECORDS SUMMARY | 2024-04-20 19:03 | XMS_ITS | Referral Summary ---
Author Organization [facility] Address [address] [place] [address] Care Team Providers Care Retort Operator Name Role Phone Tunde Herbert MD Unavailable [phone] Radha Main MD Unavailable Manolo Drake MD Unavailable [phone] Tunde Herbert MD Unavailable [phone] Fatou Sherwood MD Primary Care Provider Encounters Date Type Department Care Team Description 01/20/2024 Travel 01/20/2024 Orders Only [address] [address] Tunde Herbert MD Subjective visual disturbance (Primary Dx) 01/20/2024 10:30 AM CDT Office Visit [address] [address] Nba Santiago MD, Tunde Terjo MD Alternating esotropia (Primary Dx); Hypertropia of left eye; Myasthenia gravis (H) from Last 3 Months Allergies No known active allergies Medications Medication [...] on file Medical Devices Implanted Type Area Farm Loan Representative Device Identifier Shelf Expiration Date Model / Serial / Lot Stent Ureteral Polaris Ultra [id number] - [id number] Implanted:Qty: 1 on 04/28/2022 by Manolo Drake MD at [facility] Stent Right: Urethra [employer] 12/05/2024 [id number] / / [id number] Stent Ureteral Polaris Ultra [id number] - [id number] Implanted:Qty: 1 on 04/28/2022 by Manolo Drake MD at [facility] Stent Left: Urethra [employer] 12/19/2024 [id number] / / [id number] Procedures Procedure Name Priority Date/Time Associated Diagnosis [...] OPHTHALMOLOGY from Last 3 Months Care Teams Retort Operator Relationship Specialty Start Date End Date Fatou Sherwood MD [facility] [address] [place] [address] PCP - General 01/16/24 Tunde Herbert MD Ophthalmology 06/28/18 Radha Main MD [facility] [address] [place] [address] 06/28/18 Manolo Drake MD [address] [place] [address] Urology 04/17/22 Tunde Herbert MD [address] [place] [address] Assigned Surgical Provider 11/21/22
--- OUTSIDE RECORDS SUMMARY | 2024-04-20 19:03 | XMS_ITS | Encounter Summary ---
Author Organization [facility] Address [address] [place] [address] Care Team Providers Care Plastic Manager Name Role Phone Vazquez Ivan MD Primary Care Provider Tunde Herbert MD Unavailable [phone] Radha Main MD Unavailable Tunde Herbert MD Unavailable [phone] Tunde Herbert MD Unavailable [phone] Manolo Drake MD Unavailable [phone] Manolo Drake MD Unavailable [phone] Tunde Herbert MD Unavailable [phone] Fatou Sherwood MD Primary Care Provider Encounter Details Date Type Department Care Team (Late st Contact Info) Description 12/08/2020 [facility] Medical Advice [facility] [address] [facility] [address] [place] [address] Tunde Herbert MD [address] [place] [address] Social History Tobacco Use Types Packs/Day Years [...] on filedocumented in this encounter Care Teams Plastic Manager Relationship Specialty Start Date End Date Vazquez Ivan MD PCP - General Family Practice 06/28/18 01/15/24 Fatou Sherwood MD [facility] - [address] [address] PCP - General 01/16/24 Tunde Herbert MD Ophthalmology 06/28/18 Radha Main MD [facility] [address] [place] [address] 06/28/18 Tunde Herbert MD [address] [place] [address] Assigned Surgical Provider 01/26/21 02/06/22 Tunde Herbert MD [address] [place] [address] Assigned Surgical Provider 02/07/22 05/01/22 Manolo Drake MD [address] [place] [address] Urology 04/17/22 Manolo Drake MD [address] [place] [address] Assigned Surgical Provider 05/02/22 11/20/22 Tunde Herbert MD [address] [place] [address] Assigned Surgical Provider 11/21/22 documented as of this encounter
--- OUTSIDE RECORDS SUMMARY | 2024-04-20 19:03 | XMS_ITS | Encounter Summary ---
Author Organization [facility] Address [address] [place] [address] Care Team Providers Care Grease And Tallow Pumper Name Role Phone Vazquez Ivan MD Primary Care Provider [phone] Tunde Herbert MD Unavailable [phone] Radha Main MD Unavailable [phone] Tunde Herbert MD Unavailable [phone] Tunde Herbert MD Unavailable [phone] Manolo Drake MD Unavailable [phone] Manolo Drake MD Unavailable [phone] Tunde Herbert MD Unavailable [phone] Fatou Sherwood MD Primary Care Provider Encounter Details Date Type Department Care Team (Late st Contact Info) Description 08/16/2020 External Order Results [facility] [address] [place] [address] Outside, Provider Social History Tobacco Use Types [...] PCR (EXTERNAL RESULT) Routine 08/16/2020 10:35 AM SUPERVISOR PAPER MACHINE documented in this encounter Results * COVID-19 Virus (Coronavirus) by PCR (External Result) (08/16/2020 10:35 AM SUPERVISOR PAPER MACHINE) COVID-19 Virus by PCR (External Result) ABSENT SARSCoV2 RNA NON-INTERFACE D (ONBASE SCANS) 08/16/2020 10:3 5 AM SUPERVISOR PAPER MACHINE Narrative [facility] - 04/28/2022 2:34 PM CDT Verified by Peter Weinstein on 04/28/2022. Provider Outside LABORATORY ANAN[facility] PFT NON-INTERFACED (ONBASE SCANS) documented in this encounter Visit Diagnoses Not on filedocumented in this encounter Care Teams Grease And Tallow Pumper Relationship Specialty Start Date End Date Vazquez Ivan MD PCP - General Family Practice 06/28/18 01/15/24 Fatou Sherwood MD [facility] [address] [place] [address] PCP - General 01/16/24 Tunde Herbert MD Ophthalmology 06/28/18 Radha Main MD [facility] [address] [place] [address] 06/28/18 Tunde Herbert MD [address] [place] [address] Assigned Surgical Provider 01/26/21 02/06/22 Tunde Herbert MD [address] [place] [address] Assigned Surgical Provider 02/07/22 05/01/22 Manolo Drake MD [address] [place], [place] [address] Urology 04/17/22 Manolo Drake MD [address] [place], [place] [address] Assigned Surgical Provider 05/02/22 11/20/22 Tunde Herbert MD [address] [place] [address] Assigned Surgical Provider 11/21/22 documented as of this encounter
--- OUTSIDE RECORDS SUMMARY | 2024-04-20 19:03 | XMS_ITS | Encounter Summary ---
Author Organization [facility] Address [address] [place] [address] Care Team Providers Care Remediation Project Engineer Name Role Phone Tunde Herbert MD Unavailable Radha Main MD Unavailable [phone] Manolo Drake MD Unavailable [phone] Tunde Herbert MD Unavailable [phone] Fatou Sherwood MD Primary Care Provider [phone] Encounter Details Date Type Department Care Team (Latest Contact Info) Description 01/20/2024 Travel Social History Tobacco Use Types Packs/Day [...] on filedocumented in this encounter Care Teams Remediation Project Engineer Relationship Specialty Start Date End Date Fatou Sherwood MD [facility] [address] [place] [address] PCP - General 01/16/24 Tunde Herbert MD Ophthalmology 06/28/18 Radha Main MD [facility] [address] [place] [address] 06/28/18 Manolo Drake MD [address] [place] [id number] Urology 04/17/22 Tunde Herbert MD [address] [place] [address] Assigned Surgical Provider 11/21/22 documented as of this encounter
--- OUTSIDE RECORDS SUMMARY | 2024-04-20 19:04 | XMS_ITS | Continuity of Care Document ---
Author Organization [facility] Address [address] [place] [address] Phone Care Team Providers Care Neon Sign Worker Name Role Phone García KVNGChanell Unavailable Unavailable [...] Procedure Date Office/Outpatient Visit,Est, Mod 2022 Office/Outpatient Visit,[facility] [place] 2022 X-Ray Exam Of Neck Spine, 4+ [...] on Encounter [facility], [address], [place], [place], [id number], [place] tel:[phone] [facility] No Information Sep-0 3 [facility]. [facility], [address] [place] [address] [address], [place], [address], [place]. tel:[phone] Referring Provider: Vazquez Ferris, [address], [address]. tel:[phone] Office/Outpat ient Visit,Est, Mod [facility], [address], [place], [place], [id number], [place] tel:[phone] [facility] Arthrodesis statusSpinal stenosis, thoracic regionMyelopathy Sep-0 3 [facility]. [facility], [address] [facility] [address], [place], [address], [place]. tel:[phone] Referring Provider: Vazquez Ferris, [address], [address]. tel:[phone] Office/Outpat ient Visit,New, Mod [facility], [address], [place], [place], [id number], [place] tel:[phone] [facility] Other spondylosis, cervical regionOther spondylosis, lumbar region 3 García Lua. [facility], [address], [place], [address], [place]. tel:[phone] Referring Provider: Vazquez Ferris, [address], [address]. tel:[phone] Office/Outpat ient Visit,Est, Mod [facility], [address], [place], [id number], [place] tel:[phone] [facility] Spinal stenosis, lumbar region NOS 1 9 Conner Kellogg. [facility], [address] [place], [address], [place]. tel:[phone] Referring Provider: Vazquez Ferris, [address], [address]. tel:[phone] Office/Outpat ient Visit,Est, Mod [facility], [address], [place], [place], [id number], [place] tel:[phone] [facility] Spinal stenosis, lumbar region NOS 8 Conner Kellogg. [facility], [address] [place], [address], [place]. tel:[phone] Referring Provider: Vazquez Ferris, [address], [address]. tel:[phone] Office/Outpat ient Visit,Est, Mod [facility], [address], [place], [id number], [place] tel:[phone] [facility] Spinal stenosis, lumbar region NOS 2-201 7 Conner Kellogg. [facility], [address] [place], [address], [place]. tel:[phone] Referring Provider: Vazquez Ferris, [address], [address]. tel:[phone] [facility], [address], [place], [id number], [place] tel:[phone] [facility] Spinal stenosis, lumbar region Conner Kellogg. [facility], [address] [place], [address], [place]. tel:[phone] Referring Provider: Vazquez Ferris, [address], [address]. tel:[phone] [facility], [address], [place], [id number], [place] tel:[phone] [facility] Encounter for other specified surgical aftercare Aric Pitt. [facility], [address], [place], [place], [id number], [place]. tel:[phone] Referring Provider: Vazquez Ferris, [address], [address]. tel:[phone] [facility], [address], [place], [id number], [place] tel:[phone] [facility] No Information Conner Kellogg. [facility], [address] [place], [address], [place]. tel:[phone] Referring Provider: Vazquez Ferris, [address], [address]. tel:[phone] Office/Outpat ient Visit,New, Mod [facility], [address], [place], [id number], [place] tel:[phone] [facility] Spinal stenosis, lumbar region 7 Conner Kellogg. [facility], [address] [facility] , [place], [address], [place]. tel:[phone] Referring Provider: Vazquez Ferris, [facility] [address] [place], [address]. tel:[phone] Family History Family Member Type Diagnosis Age [...]
--- OUTSIDE RECORDS SUMMARY | 2024-04-20 19:05 | XMS_ITS | Clinical Summary ---
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 Microfilming Name Role Phone Darrion Ivan MD Primary Care Provider [phone] Allergies No known active allergies Medications Medication [...] region 11/04/2013 Overview: C3-T1 fusion in 11/01/2013- [facility] HTN (hypertension) 11/02/2013 Overview: Pt takes [...] for age 50+ (1 of 2) 1992 RSV vaccine for adults or pr egnancy (1 - 1-dose 60+ series) 2002 Pneumococcal series for age 65+ (1 of 1 - PCV) 11/26/2007 BMI (ht and wt on same day) for age 18+ 10/23/2017 10/23/2016 COVID-19 vaccine series (2022- season) 2024 06/24/2022, 09/30/2020, 09/02/2020 Influenza for age 65+ 04/16/2024 05/18/2016 , 07/15/2015, 06/09/2014 Medical Devices Implanted Type Area Aerial Tram Operator Device Identifier Shelf Expiration Date Model / Serial / Lot Baseplate Tib Lt Sz6 Aaliyah Ii Titnm Non Pors - [id number] Implanted:Qty: 1 on 08/19/2015 by Thomas Guo MD at [facility] Ortho Total Joint Left: Knee [employer] 02/12/2025 [id number]# / / [id number] Mejia Lmbr 70x5.5mm Tsrh 3d Cvd Titnm - [id number] Implanted:Qty: 1 on 12/01/2016 by Valdez Prieto MD at [facility] Spine Implants N/A: Lumbar Vertebrae Medtronic Spine/Ortho [id number]# / / Mejia Lmbr 60x5.5mm Tsrh 3d Cvd Titnm - [id number] Implanted:Qty: 1 on 12/01/2016 by Valdez Prieto MD at [facility] Spine Implants N/A: Lumbar Vertebrae Medtronic Spine/Ortho [id number]# / / Bone Matrix Xsm Infuse Bmp - [id number] Implanted:Qty: 1 on 11/01/2013 by Rickey Palomares MD at [facility] N/A: Neck Medtronic Spine/Ortho 09/15/2014 [id number]# / / [id number] Screw Arch Crtx 2.0x[address] - [id number] Implanted:Qty: 1 on 11/01/2013 by Rickey Palomares MD at [facility] N/A: Neck J And J Depuy Spine 401.354.99# / / Screw Cortex 2.0x6mm Self Tpng - [id number] Implanted:Qty: 16 on 11/01/2013 by Rickey Palomares MD at [facility] N/A: Neck J And [employer] Spine 401.356.99# / / Screw Arch Crtx 2.0x[address] - [id number] Implanted:Qty: 2 on 11/01/2013 by Rickey Palomares MD at [facility] N/A: Neck [employer] Spine 401.358.99# / / Screw Arch Er 2.4x6 Titnm - [id number] Implanted:Qty: 1 on 11/01/2013 at [facility] N/A: Neck [employer] Spine 401.386.99# / / Plate 443.164 - [id number] Implanted:Qty: 1 on 11/01/2013 by Rickey Palomares MD at [facility] N/A: Neck J And J Depuy CMF 443.164 # / / Plate Arch Sgl Bend 6mm - [id number] Implanted:Qty: 1 on 11/01/2013 by Riceky Palomares MD at [facility] N/A: Neck J And [employer]uy Spine 443.166# / / Plate Arch Sgl Bend 8mm - [id number] Implanted:Qty: 1 on 11/01/2013 by Rickey Palomares MD at [facility] N/A: Neck J And [employer]uy Spine 443.168# / / Plate 443.176 - [id number] Implanted:Qty: 1 on 11/01/2013 by Rickey Palomares MD at [facility] N/A: Neck J And J Depuy CMF 443.176 # / / Plate Arch Dbl Bend 8mm - [id number] Implanted:Qty: 1 on 11/01/2013 by Rickey Palomares MD at [facility] N/A: Neck J And [employer] Spine 443.178# / / Bone 4mm Mtf Spacer Angl Arch-Odl - [id number] Implanted:Qty: 1 on 11/01/2013 at [facility] N/A: Neck Musculoskeletal Transplant 10/14/2014 69175# / [id number] / Bone 6mm Mtf Spacer Parallel Arch-Odl - [id number] Implanted:Qty: 1 on 11/01/2013 by Yajaira Wallace CRNA at [facility] N/A: Neck Musculoskeletal Transplant 04/11/2016 64963# / [id number] / Bone 6mm Mtf Spacer Parallel Arch-Odl - [id number] Implanted:Qty: 1 on 11/01/2013 by Rickey Palomares MD at [facility] N/A: Neck Musculoskeletal Transplant 04/11/2016 23656# / / [id number] Bone 4mm Mtf Spacer Angl Arch-Odl - [id number] Implanted:Qty: 1 on 11/01/2013 by Rickey Palomares MD at [facility] N/A: Neck Musculoskeletal Transplant 04/10/2016 51907# / / [id number] 100 Bone 6mm Mtf Spacer Parallel Arch-Odl - [id number] Implanted:Qty: 1 on 11/01/2013 by Rickey Palomares MD at [facility] N/A: Neck Musculoskeletal Transplant 04/11/2016 30506# / / [id number] - [id number] Implanted:Qty: 1 on 11/01/2013 by Rickey Palomares MD at [facility] N/A: Neck BIOMET [id number] / / Description:Screw CRTX FT 4. 5x16mm [id number] - [id number] Implanted:Qty: 1 on 11/01/2013 by Rickey Palomares MD at [facility] N/A: Neck BIOMET [id number] / / Description:Screw CRTX FT 4. 5x18mm Screw Arch Crtx 2.0x4 Titnm Sd - [id number] Implanted:Qty: 4 on 11/01/2013 by Rickey Palomares MD at [facility] N/A: Neck J [employer] Spine 401.134.99# / / Cmnt Bone 40g Simplex P Non Atb Mv - [id number] Implanted:Qty: 2 on 04/19/[address] [facility] Right: Knee [employer] 6191-1-010# / / [id number] Patella 38mm Aaliyah Ii Resurf - [id number] Implanted:Qty: 1 on 04/19/[address] [facility] Right: Knee [employer] 14750293# / / [id number] Insert Knee Sz7-9 9mm Legion Cruc Ret High Flex Xlpe - [id number] Implanted:Qty: 1 on 04/19/[address] [facility] Right: Knee [employer] [id number]# / / [id number] Baseplate Tib Rt Sz7 Aaliyah Ii Titnm Non Pors - [id number] Implanted:Qty: 1 on 04/19/[address] [facility] Right: Knee [employer] 49581939# / / [id number] Fem Rt Sz8 Legion Cruc Ret Co Cr Non Pors - [id number] Implanted:Qty: 1 on 04/19/[address] [facility] Right: Knee [employer] 77759873# / / [id number] Cmnt Bone Simplex Atb Tobramycin - [id number] Implanted:Qty: 1 on 08/19/2015 by Thomas Guo MD at [facility] Left: Knee [employer] 10/13/2016 6197-9-001# / / [id number] Cmnt Bone Simplex Atb Tobramycin - [id number] Implanted:Qty: 1 on 08/19/2015 by Thomas Guo MD at [facility] Left: Knee [employer] 10/13/2016 6197-9-001# / / [id number] Patella 38mm Aaliyah Ii Resurf - [id number] Implanted:Qty: 1 on 08/19/2015 by Thomas Guo MD at [facility] Left: Patella [employer] 03/01/2025 [id number]# / / [id number] Fem Lt Sz7 Legion Post Stbz Oxin - [id number] Implanted:Qty: 1 on 08/19/2015 by Thomas Guo MD at [facility] Left: Knee [employer] 05/18/2025 [id number]# / / [id number] Insert Knee Sz5-6 12mm Legion Xlpe - [id number] Implanted:Qty: 1 on 08/19/2015 by Thomas Guo MD at [facility] Left: Knee [employer] 06/15/2024 [id number]# / / [id number] Bone 1-4mm 60cc Medtronic Chips Canclls Frozen - [id number] Implanted:Qty: 1 on 12/01/2016 by Valdez Prieto MD at [facility] N/A: Lumbar Vertebrae Medtronic Spine/Ortho 07/27/2021 719722# / [id number] Bone Matrix 6cc Marcial Dbf Putty Dbm - [id number] Implanted:Qty: 1 on 12/01/2016 by Valdez Prieto MD at [facility] N/A: Lumbar Vertebrae Medtronic Spine/Ortho 08/20/2018 Q47754# / [id number] / Bone Matrix 6cc [place] Dbf Putty Dbm - [id number] Implanted:Qty: 1 on 12/01/2016 by Valdez Prieto MD at [facility] N/A: Lumbar Vertebrae Medtronic Spine/Ortho 08/20/2018 Q78375# / [id number] / Spacer Lmbr 80z37hm Capstone Tlif Titnm Coating - [id number] Implanted:Qty: 1 on 12/01/2016 by Valdez Prieto MD at [facility] N/A: Lumbar Vertebrae Medtronic Spine/Ortho 05/02/2023 [id number]# / / [id number] Cnnctr Lmbr Sm Tsrh 3dx Offsettitnm - [id number] Implanted:Qty: 3 on 12/01/2016 by Valdez Prieto MD at [facility] N/A: Lumbar Vertebrae Medtronic Spine/Ortho [id number]# / / NO LOT OR EXPIRATION Description:No lot or expira tion/medtronic tray Screw Lmbr Post 6.5x50mm Tsrh 3dx Og Thin Va - [id number] Implanted:Qty: 4 on 12/01/2016 by Valdez Prieto MD at [facility] N/A: Lumbar Vertebrae Medtronic Spine/Ortho [id number]# / / NONE Description:No lot or expira tion/medtronic tray Set Screw Lmbr Tsrh 3dx - [id number] Implanted:Qty: 6 on 12/01/2016 by Valdez Prieto MD at [facility] N/A: Lumbar Vertebrae Medtronic Spine/Ortho [id number]# / / NONE Description:No lot or expira tion/medtronic tray Screw Lmbr Post 7.5x45mm Tsrh 3dx Og Thin Va - [id number] Implanted:Qty: 2 on 12/01/2016 by Valdez Prieto MD at [facility] N/A: Lumbar Vertebrae Medtronic Spine/Ortho 31640449# / / NONE Description:No lot or expira tion/medtronic tray [place] Md [facility] 3dx Offsettitvt - [id number] Implanted:Qty: 2 on 12/01/2016 by Valdez Prieto MD at [facility] N/A: Lumbar Vertebrae Medtronic Spine/Ortho 8766959# / / [place] Lg [facility] 3dx Offsettitvt - [id number] Implanted:Qty: 1 on 12/01/2016 by Valdez Prieto MD at [facility] N/A: Lumbar Vertebrae Medtronic Spine/Ortho 8563343# / / Explanted Type Area Aerial Tram Operator Device Identifier Shelf Expiration Date Model / Serial / Lot Pin Knee 65mm Non-Rimmed St-St Strl - [id number] Explanted:Qty: 1 on 04/19/[address] [facility] Right: Knee [employer] 96946326# / / [id number] Pin Knee 45mm Rimmed St-St Strl - [id number] Explanted:Qty: 1 on 04/19/[address] 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
--- OUTSIDE RECORDS SUMMARY | 2024-04-20 19:05 | XMS_ITS | Continuity of Care Document ---
Author Organization [facility] Address [address] [address] [place] [address] Phone Care Team Providers Care Customer Service Voice Name Role Phone Maximus Lakhani MD Unavailable [...] Diagnoses Date Provider Providers Copied on Encounter [facility], [address] [address], [place], [id number], [place] tel:[phone] [facility] No Information 3 Meir Stroud. [address], [place], [place], [id number], [place]. [phone] [facility], [address] [address], [place], [id number], [place] tel:[phone] [facility] Colorectal polypsInternal and external hemorrhoids without complicationEnco unter for screening for malignant neoplasm of colonPolyp of colon 2 Norbert Turner. [address], [place], [place], [id number], [place]. tel:[phone] Referring Provider: Vazquez Ferris, [address] [place] [address], [address]. tel:[phone] [facility], [address] [address], [place], [id number], [place] tel:[phone] No Information 2 No Information Referring Provider: Vazquez Ferris, [address] [place] [address], [address]. tel:[phone] Family History Family Member Type Diagnosis Age [...] ional interface ; Source: Other Registry Novel [id number], all formulations administered Note: [facility] bi-direct ional [...] Registry Payers Payer name Insurance type Covered constitution [...]
== END 2024-04-20 20:35 | disposition home or self-care (01) ==
PROVIDERS: Emergency Provider Emergency Medicine; PCP Internal Medicine
DX: S70.01XA Contusion of right hip, initial encounter (principal); W19.XXXA Unspecified fall, initial encounter
CPT/HCPCS: 73502; 99283